=== PATIENT | male | born 1960 | race Caucasian/White ===

== ENCOUNTER → 2018-07-15 09:01 | Outpatient (CLI) | payer BC, SELFPAY ==
[2018-05-23 15:25] VITALS: BMI 38.2
[2018-07-15 10:23] LABS: Hemoglobin A1c 5.3 % (4.2-6.3)
[2018-07-15 10:25] LABS: AST(SGOT) 22 U/L (15-37); Alanine Aminotransfer ALT/SGPT 30 U/L (16-61); Albumin, Serum 3.6 g/dL (3.2-5.0); Alkaline Phosphatase 72 U/L (45-117); Anion Gap 5 (5-15); BUN 13 mg/dL (7-18); BUN/Creat Ratio 12.4 RATIO (10-20); Calcium,Total 8.6 mg/dL (8.5-10.1); Chloride 108 mmol/L (98-107); Cholesterol 137 mg/dL (200); Creatinine, Serum 1.05 mg/dL (0.70-1.30); EST Glomerular Filtration Rate 77 mL/min (>60); Est Glom Filt Rate - Afr Amer 93 mL/min (>60); Ferritin 104 ng/mL (26-388); Globulin 3.5 g/dL (2.2-4.2); Glucose 93 mg/dL (74-106); High Density Lipoprotein 56 mg/dL; PSA,Total - Annual Screen 1.62 ng/mL (0.00-4.00); Potassium 3.9 mmol/L (3.5-5.1); Protein, Total 7.1 g/dL (6.4-8.2); Sodium Level 139 mmol/L (136-145); Thyroid Stim Hormone (TSH) 1.03 uIU/mL (0.358-3.74); Triglycerides 63 mg/dL; Very Low Density Lipoprotein 13 mg/dL (5-40)
[2018-07-16 16:24] LABS: Endomysial Antibody IgA Negative (Negative)
[2018-07-16 16:25] LABS: Deamidated Gliadin IgA 3 units (0-19); Deamidated Gliadin IgG 2 units (0-19); Immunoglobulin A 245 mg/dL (90-386); t-Transglutaminase IgA <2 U/mL (0-3)
== END ==
PROVIDERS: Family Provider Family Medicine; PCP Family Medicine; Referring Provider Family Medicine; Visit Provider Family Medicine
DX: Z00.00 Encounter for general adult medical examination without abnormal findings (principal); L80 Vitiligo; R25.2 Cramp and spasm
CPT/HCPCS: 36415; 80053; 80061; 82728; 82784; 83036; 83516; 84153; 84443; 86255; G0103

== ENCOUNTER → 2018-07-24 10:39 | Outpatient (CLI) | payer BC, SELFPAY ==
--- NOTE | 2018-07-24 10:42 | RAD_ITS ---
STUDY: X-RAY - LUMBAR SPINE REASON FOR EXAM: Male, 58 years old. Right thigh pain TECHNIQUE: 5 view(s) of the lumbar spine were obtained. COMPARISON: None FINDINGS: There is normal alignment and curvature of the lumbosacral spine with degenerative changes involving the lower thoracic spine and also at T12-L1 and L1-L2. The pedicles are intact. The paravertebral soft tissues are normal.. RAD/L/S Spine Min 4 Views IMPRESSION: Mild multilevel intervertebral chondrosis. No fracture Electronically Signed: Mario Cool MD at 6:32 EST Tel , Service support ,
[2018-07-24 11:58] LABS: Absolute Lymphocyte Count 1.05 X10^3/ul (0.83-4.51); Basophil# 0.01 X10^3/uL; Basophil% 0.2 % (0-1); Eosinophil# 0.14 X10^3/uL; Eosinophils% 2.9 % (0-5); Hematocrit 44.2 % (40-54); Hemoglobin 15.1 g/dl (13.0-16.5); Lymphocyte # 1.05 X10^3/ul (4.0); Lymphocyte % 21.6 % (19-41); Mean Corp Hgb Conc 34.2 g/gl (32-36); Mean Corpuscular Hgb 31.5 pg (27.0-32.0); Mean Corpuscular Volume 92.3 fL (80-94); Mean Platelet Vol. 9.9 fl (6.2-12.0); Monocyte# 0.64 X10^3/uL; Monocyte% 13.1 % (0-10); Neutrophil # 3.03 X10^3/uL (2.7-7.7); Neutrophil % 62.2 % (47-70); Platelet Count 207 K/mm3 (150-450); RBC Distribution Width CV 13.2 % (11.6-14.6); RBC Distribution Width SD 43.4 fl (35.1-43.9); Red Blood Count 4.79 M/mm3 (4.6-6.2); White Blood Count 4.9 K/mm3 (4.4-11.0)
[2018-07-24 12:00] LABS: POSITIVE COUNT NO; POSITIVE DIFFERENTIAL NO; POSITIVE MORPHOLOGY NO
[2018-07-24 12:06] LABS: Erythrocyte Sedimentation Rate 5 mm/hr (0-20)
[2018-07-24 12:19] LABS: Vitamin B12 1083 pg/mL (211-911)
[2018-07-24 12:21] LABS: CPK Total, Creatine Kinase 161 U/L (39-308); CRP 4.87 mg/L (0.0-3.0)
[2018-07-26 11:50] LABS: Aldolase 4.2 U/L (3.3-10.3)
== END ==
PROVIDERS: Family Provider Family Medicine; PCP Family Medicine; Referring Provider Family Medicine; Visit Provider Family Medicine
DX: R25.3 Fasciculation (principal)
CPT/HCPCS: 36415; 72110; 82085; 82306; 82550; 82607; 83735; 85025; 85652; 86140

== ENCOUNTER → 2018-08-26 16:41 | Outpatient (CLI) | payer BC, SELFPAY ==
--- NOTE | 2018-08-26 16:45 | RAD_ITS ---
STUDY: X-RAY - RIGHT FEMUR REASON FOR STUDY: Mid anterior femur pain. TECHNIQUE: 2 view(s) of the femur. COMPARISON: None. FINDINGS: Normal visualized femur. Normal visualized soft tissue structure. RAD/Femur Min 2 Views IMPRESSION: Normal x-ray examination of the right femur. Electronically Signed: Leodan Forbes MD at 16:01 EST Tel , Service support ,
== END ==
PROVIDERS: Family Provider Family Medicine; PCP Family Medicine; Referring Provider Family Medicine; Visit Provider Family Medicine
DX: M79.604 Pain in right leg (principal)
CPT/HCPCS: 73552

== ENCOUNTER → 2018-10-16 06:16 | Outpatient (CLI) | payer BC, SELFPAY ==
[2018-05-23 15:25] VITALS: BMI 38.2
--- NOTE | 2018-10-16 11:16 | NEURO ---
NCS and/or EMG Patient Report Ordering Doctor: Sim Wilson DATE OF SERVICE: 10/16/18 Melvin Horn is a 58-year-old male presents for electrodiagnostic testing of the right lower limb. He reports intermittent sharp pains in the right thigh for the past several months. Electrodiagnostic findings: Normal peroneal and tibial motor studies on the right side. Sensory responses are within normal limits. Normal tibial and peroneal F-wave. H reflex normal bilaterally. On needle EMG, all muscles tested in the right lower limb show no evidence of denervation with normal motor unit action potentials. Electrodiagnostic impression: This is a normal study in the right lower limb. There is no electrodiagnostic evidence for lumbosacral radiculopathy or peripheral neuropathy. If there are any further questions, please do not hesitate to contact me.
== END ==
PROVIDERS: Family Provider Family Medicine; PCP Family Medicine; Referring Provider Family Medicine; Visit Provider Family Medicine
DX: R25.2 Cramp and spasm (principal)
CPT/HCPCS: 95886; 95910

== ENCOUNTER → 2018-10-21 16:14 | Outpatient (CLI) | payer BC, SELFPAY ==
[2018-05-23 15:25] VITALS: BMI 38.2
--- NOTE | 2018-10-21 16:22 | CT_ITS ---
STUDY: CTA CHEST WITH CONTRAST REASON FOR EXAM: Male, 58 years old. Thoracic aortic aneurysm. RADIATION DOSAGE (If Supplied By Facility): CTDIvol = ( 16.00 ) mGy, DLP = ( 728.90 ) mGycm TECHNIQUE: Transaxial imaging was performed following intravenous administration of 100ml ml of Isovue 300 contrast material. Coronal and sagittal reformatted images were created. Individualized dose optimization techniques were used for this CT. COMPARISON: 08/28/2017 FINDINGS: There are no pulmonary infiltrates or pleural effusions. There are no pulmonary nodules or masses. There is no pneumothorax. There is no evidence of thoracic aortic dissection. The ascending aorta and proximal aortic arch are normal in caliber. There is stable focal stenosis in the distal aortic arch approximately 2.5 cm from the origin of the left subclavian artery. There is stable aneurysmal dilatation of the distal aortic arch beyond the focal stenosis, measuring approximately 4.4 cm (previously 4.3 cm). The proximal descending thoracic aorta measures 3.7 cm and is stable in size. The heart and pericardium are within normal limits. There is no thoracic lymphadenopathy. Images through the upper abdomen demonstrate no significant abnormality. There are no destructive osseous lesions. CT/Chest WITH Contrast IMPRESSION: No evidence of thoracic aortic dissection. Stable focal narrowing of the aortic arch with stable post stenotic aneurysmal dilatation, measuring 4.4 cm. Clear lungs. Electronically Signed: Rosendo Sargent, at 15:37 EST Tel , Service support ,
[2018-10-21 16:40] LABS: CREATININE FINGERSTICK 0.8 mg/dL (0.70-1.30); EGFR FINGERSTICK > 60.0000 mL/min (>60)
== END ==
PROVIDERS: Family Provider Family Medicine; PCP Family Medicine; Referring Provider Internal Medicine Cardiovascular Disease; Visit Provider Internal Medicine Cardiovascular Disease
DX: I71.2 Thoracic aortic aneurysm, without rupture (principal)
CPT/HCPCS: 71260; Q9967

== ENCOUNTER 2018-12-24 16:30 | Outpatient (RCR) | payer BC, SELFPAY ==
--- NOTE | 2018-10-30 19:00 | HP.PTEVAL_ITS ---
Patient's Visit Information GEENA STONE is a 58 year old M referred to Physical Therapy by Sim Wilson MD with a diagnosis of R anterior leg pain in Meralgia paresthetica region. Date of Evaluation: 10/30/18 Physical Therapist: NATALIA Yoo - Visit Plan Frequency: 1-2x /Week Duration: 2 Months Plan: 1-2 X/ week for 8 weeks for prone centralization extension exercises, postural and core stability, stretching of the R Quad/hip flexor with foam rolling, with HEP and modalities if needed. - Subjective Findings: Pt reports that a few months ago his R leg from medial thigh and above in the middle of the night he thought it was a muscle cramp and most awful pain and it is almost like someone is dialing up his muscle and then goes full into it. He was leaning against the wall and broke out into a sweat. Went in living room and put something on it. 2 years prior to that it happened maybe one other time. Couple days later it starts again and freq became more freg and the feeling is like a razor claw is going up his anterior thigh. He started timing....6X/ each 1/2 hour it would do this while at his desk. He went to and was put on gabapetin. Did a nerve conduction and it is not nerve. thinks that it might be muscle of something. Currently he gets it maybe 1-2X/ week and it is like an electrical shock... the pain is deep. He walks at the [employer] and it hit him one time while he was walking and almost collapsed. They tested blood work and it all came back normal. He sits all day at his job. He has a tooth ache on the lateral lety of his hip if he get an ache. He played a lot of sports as he was younger. Couple of years ago he was in here with pain in his neck and R arm... 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 Pt would get burning. He had gained some weight and now is losing weight. - Pain R lateral thigh pain Pain Intensity (Out of 10): 1 - Objective Gait: normal gait pattern. Posture: slouched, decreased lumbar lordosis, rounded shoulders, increased PPT. LE MMT: Hip flex B 4/5, Knee flex B 4/5, Knee ext B 4/5, B hip abd 4-/5, B hip ext 4-/5. Palpation: Tender over the R rectus femoris.... no tenderness on the L. Trunk AROM: flex 75%, ext 50%, SB R 75% and L 100%. Pt is able to walk on heels and toes. Patellar DTR's 2+/3 B. Prone lying no change in anterior thigh symptoms. Prone Press ups 3 X 10...pts R thighsensation was abolished. Pt was shown how to sit with a lumbar roll. Tight Quad with stretching in prone on the R almost same area he was getting the grabbing sensation - Goals Goal 1:: I HEP Goal Time Frame: 4-6 Weeks Goal 2:: Abolish R leg pain Goal Time Frame: 4-6 Weeks Goal 3:: Sit with upright posture during treatment sessions Goal Time Frame: 4-6 Weeks - Rehabilitation Potential Rehabilitation Potential: Good - Anticipated Interventions Patient/Client Instruction: Educate patient on: Condition, Plan of Care For the Purpose of:: To decrease pain, To decrease swelling/inflammation, To increase ROM, To improve nutrient delivery to tissue, To improve muscle performa nce and motor function, To improve ability to perform ADL's, To increase tolerance to activity/condition/position, To improve ability of physical actions for home/community/work/leisure, To improve health of tissue, To decrease soft tissue restriction, To increase flexibility/ROM Therapeutic Exercise to Include: Strength training, Postural training, Flexibilty training, Passive ROM, Active ROM, Marlena Exercises For the Purpose of:: To decrease pain, To increase ROM, To improve nutrient delivery to tissue, To improve muscle performance and motor function, To improve ability to perform ADL's, To increase tolerance to activity/condition/position, To improve health of tissue, To decrease soft tissue restriction, To increase flexibility/ROM Manual Therapy Techniques to Include: Passive ROM, Functional dry needling, Soft tissue mobilization For the Purpose of:: To decrease pain, To improve nutrient delivery to tissue, To improve muscle performance and motor function, To increase tolerance to activity/condition/position, To improve ability of physical actions for home/community/work/leisure, To improve health of tissue, To decrease soft tissue restriction, To increase flexibility/ROM IF ES: Yes Cryotherapy (ice pack, ice massage): Yes Thermo therapy (hot pack): Yes Ultrasound (thermal/non thermal): Yes For the Purpose of:: To decrease pain, To decrease swelling/inflammation, To improve nutrient delivery to tissue, To improve muscle performance and motor function Thank you for the opportunity to evaluate your patient. For Medicare and Medicare HMO plans, please review the plan of care and approve it. It will need to be FAXED BACK to us at [phone] for Medicare purposes. For Medicare only, by signing this I certify the plan of care. Please let me know if there are questions or concerns regarding this plan of care. Physician Signature: Date:
--- NOTE | 2018-12-25 12:15 | HP.PTDCSUM ---
HP - PT D/C Summary It has been my pleasure to treat GEENA STONE under orders from Sim Wilson MD, for the diagnosis of R anterior leg pain in Meralgia paresthetica region for a total of 7 visit(s). Discharge Date: 12/25/18 Please see the following information for a summary of their discharge status. - Subjective Subjective: No pain today. This weekend he had pain after her was sitting in the car for 3 hours. He also notices that that his pain radiates from his R buttock to his anterior thigh. Prolonged sitting increases his pain. Pt late to PT - Pain R lateral thigh pain Pain Intensity (Out of 10): 1 - Overall Improvement % Improvement: 75 - Objective Objective/Function: Pt could really feel the prone press up with prone sag....across his LB. Feel that pt's symptoms are coming from L2 lumbar spine.... recommend PT in the future if pt's pain comes back and possible further diagnostic testing. - Goals Goal 1:: I HEP Goal Progress: Goal Met Goal 2:: Abolish R leg pain Goal Progress: Progressing Goal 3:: Sit with upright posture during treatment sessions Goal Progress: Goal Met - Plan Plan: DC PT to HEP - D/C Information Discharge Comments: DC PT to HEP If there are questions or concerns regarding this patient's physical therapy, please feel free to call me at [phone]. Thank you for the referral of this patient. Sincerely, Ramona Redd, MPT
== END 2018-12-24 19:00 | disposition home or self-care (01) ==
LOC: PT 16:30
PROVIDERS: Family Provider Family Medicine; PCP Family Medicine; Referring Provider Family Medicine; Visit Provider Family Medicine
DX: M79.604 Pain in right leg (principal); G57.11 Meralgia paresthetica, right lower limb
CPT/HCPCS: 97110; 97162

== ENCOUNTER → 2020-02-04 | Outpatient (CLI) | payer BC, SELFPAY ==
[2019-11-28 14:24] VITALS: BMI 32.5
--- NOTE | 2020-02-04 13:29 | CT_ITS ---
STUDY: CT CHEST WITH CONTRAST REASON FOR EXAM: Male, 59 years old. TAA CHECK UP RADIATION DOSAGE (If Supplied By Facility): CTDIvol = ( 18.17 ) mGy, DLP = ( 787.29 ) mGycm TECHNIQUE: Transaxial imaging was performed following intravenous administration of IV 100ML ISOVUE 370. Multiplanar coronal and sagittal images were reformatted. Individualized dose optimization techniques were used for this CT. COMPARISON: Comparison is made with prior study dated October 06, 2013. FINDINGS: The lungs are normal. There is no demonstrated pleural abnormality. Normal heart and pericardium. There are multiple small lymph nodes within the mediastinum, which are normal in size and morphology most compatible with reactive lymph hyperplasia. Normal hilar regions. Normal enhanced pulmonary arteries. Once again, there is evidence of dilatation of the distal portion of the aortic arch and descending thoracic aorta. The transverse dimension is 4.7 cm. This is unchanged. There is a focal narrowing of the distal portion of the aortic arch. The descending thoracic aorta is dilated as well. It has a transverse dimension of 3.8 cm. Quantitation of the aorta should be ruled out. Normal osseous structures. There is no demonstrated abnormality of the visualized upper abdomen. 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 Electronically Signed: Ricardo Delatorre, at 14:31 EDT , Service support ,
[2020-02-04 14:01] LABS: CREATININE FINGERSTICK 0.9 mg/dL (0.70-1.30); EGFR FINGERSTICK > 60.0000 mL/min (>60)
--- OUTSIDE RECORDS SUMMARY | 2020-06-06 15:12 | XMS RPT_ITS | CCD ---
:1960 External Reference #:[id number] Author Organization [facility] Care Team Providers Name Role Phone Cassidy Wilson Unavailable Kacie Hitchcock Unavailable Allergies Reported Allergen Reaction(s) Severity Date of Onset Location BACTRUM rash-localized Critical, Critical 10-24-2010 - [facility] ([id number]) Medications Medication Name Sig Date Prescriber Location aspirin ASPIRIN 81 MG TABS One 10-20-2015 [facility] tablet by mouth daily (71745 ) ASPIRIN [id number] Keshia Salgado RN ASPIRIN 81 MG TABS One tablet by mouth daily 10-20-2015 [facility] (88240) ASPIRIN [id number] Keshia Salgado RN ASPIRIN EC 81 MG TBEC One tablet by mouth 10-20-2015 [facility] (34683) daily ASPIRIN [id number] Juan J Powers busPIRone BUSPIRONE HCL 10 MG TABS 10-17-2013 - 11-25-2014 [facility] One tablet by mouth daily (4 4691) BUSPIRONE HCL [id number] Kody Malik MD BUSPIRONE HCL 10 MG TABS as directed-One 02-19-2012 [facility] (35891) tablet twice daily BUSPIRONE HCL [id number] Kody Malik MD carvedilol COREG 12.5 MG TABS 06-13-2010 Talisha Best RN [facility] One tablet by mouth Group (4 4691) twice daily CARVEDILOL [id number] Kody Malik MD doxycycline DOXYCYCLINE HYCLATE 05-17-2016 [facility] 100 MG TABS One Group (92881 ) tablet by mouth twice daily DOXYCYCLINE HYCLATE [id number] Kody Malik MD hydrOXYzine VISTARIL 25 MG CAPS 11-25-2014 - [facility] Every 8 hrs as needed 10-21-2015 Group (82467) HYDROXYZINE PAMOATE [id number] Kody Malik MD ipratropium IPRATROPIUM BROMIDE 09-25-2012 - [facility] 0.03 % SOLN Nasal 10-21-2015 Group (446 91) spray as directed IPRATROPIUM BROMIDE [id number] Kody Malik MD pantoprazole PANTOPRAZOLE SODIUM 10-17-2013 June Cortez [facility] 40 MG TBEC One tablet RN Group (11846) by mouth daily PANTOPRAZOLE SODIUM [id number] Kody Malik MD raNITIdine RANITIDINE HCL 300 MG 06-24-2009 [facility] CAPS One tablet by Group (44 691) mouth daily RANITIDINE HCL [id number] Roula M Valentin sertraline SERTRALINE HCL 100 MG 05-17-2016 [facility] TABS One half tablet Group ( 65945) by mouth daily SERTRALINE HCL [id number] Kody Malik MD Problems Active Problems Category Problem Name Status Date Location Aortic; peripheral; and Aneurysm of thoracic Active - [facility] visceral artery aorta Group (93964 ) aneurysms Cardiac dysrhythmias Supraventricular Active 10-24-2010 - [facility] tachycardia [facility] (01384) Other nutritional; Body mass index (BMI) Active 04-09-2013 - [facility] endocrine; and metabolic 35.0-35.9, adult Group (06067) disorders Peripheral and visceral Atherosclerosis of artery Active - [facility] atherosclerosis Group (16244 ) Unclassified Family history of Active 10-24-2010 - [facility] ischemic heart disease [facility] (88945) Past or Other Problems Category Problem Name Status Date Location Malaise and fatigue Fatigue Completed 10-24-2010 - [facility] (47695) Nonspecific chest Precordial pain Completed 10-24-2010 - [facility] pain (57494) Other circulatory Abnormal result of Completed 10-24-2010 - [facility] disease cardiovascular function (446 91) study, unspecified Superficial injury; Contusion of right Completed 06-06-2017 - [facility] contusion shoulder, initial Sports Med icine and encounter Orthopaedics (4 0505) Results Result Name Value Range Unit Interpretation Flag Date Location office visit on 02-26-18 Dietary management yes Invalid 06-06-2017 - [facility] education, Interpretation Code 7 [facility] guidance, and Medici ne and counseling Orthopaed ics (procedure) (06814) Documentation of Done Invalid 06-06-2017 - [facility] current medications Interpretation Code 06-06-2017 [place] [facility] (procedure) Medicine and Orthopaedi cs (61627) Tobacco use CPHS Never Invalid 06-06-2017 - [facility] smoker Interpretation Code 06-06-2017 [place] [facility] (25448) office visit on 02-23-28 Documentation of Done Invalid Interpretation 02-14-2017 - [facility] current medications Code 02-14-2017 Group (10144) (procedure) Fall risk assessment No Invalid Interpretat ion 02-14-2017 - [facility] Code 02-14-2017 Group (44 691) office visit on 01-20-03 Dietary management yes Invalid 10-21-2015 - [facility] education, guidance, Interpretation Code 10-21-2015 Group (24253) and counseling (procedure) General 4 % Invalid 10-21-2015 - [facility] cardiovascular Interpretation Code 10-20 Group (64045) disease 10Y risk [#] [place] Tobacco use CPHS Never smoker Invalid 10-21-2015 - [facility] Interpretation Code 10-21-2015 Group (38296) clinical lists update: preload on 2015-09-06 Alanine 23 U/L Invalid 09-06-2015 - [facility] aminotransferase (ALT) Interpretation Co de 09-06-2015 [facility] (87932) Alkaline phosphatase 56 U/L Invalid - [facility] (ALP) Interpretation Code 09-06-2015 [facility] (42777) Aspartate 17 U/L Invalid 09-06-2015 - [facility] aminotransferase (AST) Interpretation Co de 09-06-2015 [facility] (36076) Bilirubin (total) 0.90 mg/dL Invalid 09-06-2015 - [facility] Interpretation Code 09-06-2015 [facility] (41107) Chloride 109 mmol/L Invalid 09-06-2015 - [facility] Interpretation Code 09-06-2015 [facility] (37335) Cholesterol 127 mg/dL Invalid 09-06-2015 - [facility] Interpretation Code 09-06-2015 [facility] (59597) Creatinine 1.10 mg/dL Invalid 09-06-2015 - [facility] Interpretation Code 09-06-2015 [facility] (67486) HDL Cholesterol 56 mg/dL Invalid 09-06-2015 - [facility] Interpretation Code 09-06-2015 [facility] (96835) Hematocrit (HCT) 40.2 % Invalid 09-06-2015 - [facility] Interpretation Code 09-06-2015 [facility] (19171) Hemoglobin (HGB) 14.3 g/dL Invalid 09-06-2015 - [facility] Interpretation Code 09-06-2015 [facility] (30826) LDL Cholesterol 59 mg/dL Invalid 09-06-2015 - [facility] Interpretation Code 09-06-2015 [facility] (11868) Left ventricular 55 % Invalid 09-06-2015 - [facility] E[facility] fraction Interpretation Code [facility] (43435) Platelets 178 10*3/mm3 Invalid 09-06-2015 - [facility] Interpretation Code 09-06-2015 [facility] (65890) Potassium 4.1 mmol/L Invalid 09-06-2015 - [facility] Interpretation Code 09-06-2015 [facility] (19544) Sodium 145 mmol/L Invalid 09-06-2015 - [facility] Interpretation Code 09-06-2015 [facility] (78720) Triglyceride 60 mg/dL Invalid 09-06-2015 - [facility] Interpretation Code 09-06-2015 [facility] (08055) Urea nitrogen 13 mg/dL Invalid 09-06-2015 - [facility] Interpretation Code 09-06-2015 [facility] (14412) very low density 12 mg/dL Invalid 09-06-2015 - [facility] lipoproteins Interpretation Code 016 [facility] (23875) WBC (Leukocytes) 3.6 10*9/L Invalid 09-06-2015 - [facility] Interpretation Code 09-06-2015 [facility] (29417) office visit on 201 12-22-07 cardiac risk group C Invalid Interpretatio n 11-25-2014 - [facility] Code 11-25-2014 Group (44 691) clinical lists update: preload on 2014-03-04 Anion gap 6 mmol/L Invalid 03-04-2014 - [facility] Interpretation Code 03-04-2014 Group (35002) BUN/Creatinine 14.0 mg/mg Invalid 03-04-2014 - [facility] Ratio Interpretation Code 03-04-2014 Group (01241) CO2 29.0 mmol/L Invalid 03-04-2014 - [facility] Interpretation Code 03-04-2014 Group (69844) Erythrocytes (RBC) 4.71 10*6/uL Invalid 03-04-2014 - [facility] Interpretation Code 03-04-2014 Group (23729) Glucose 77 mg/dL Invalid 03-04-2014 - [facility] Interpretation Code 03-04-2014 Group (93923) Glucose mass conc 77 mg/dL Invalid 03-04-2014 - [facility] Interpretation Code 03-04-2014 [place] [facility] (85905) MCH 31.4 pg Invalid 03-04-2014 - [facility] Interpretation Code 03-04-2014 Group (84268) MCHC 34.9 g/dL Invalid 03-04-2014 - [facility] Interpretation Code 03-04-2014 Group (68495) MCV 90.0 fL Invalid 03-04-2014 - [facility] Interpretation Code 03-04-2014 Group (22174) clinical lists update on 2012-02-20 Calcium 8.4 mg/dL Invalid Interpretation 012 - [facility] Code 02-20-2012 Group (44 001) replaced document: midmark ecg observati ons on 2012-02-19 EKG QRS axis 9 deg Invalid 02-19-2012 - [facility] Interpretation 02-19-2012 [facility] (32528) electrocardiogram Sinus Invalid 02-19-2012 - [facility] interpretation Bradycardia Interpretation 02-19-20 12 Group (80075) WITHIN NORMAL Code LIMITS Interpretation Sinus Invalid 02-19-2012 - [facility] Bradycardia Interpretation 02-19-2012 [facility] WITHIN NORMAL Code Medici ne and LIMITS Orthopaedi cs (50177) P [place] 42 deg Invalid 02-19-2012 [facility] Interpretation 02-19-2012 [facility] nd [facility] (43426) P wave axis, 42 deg Invalid 02-19-2012 - [facility] electrocardiogram Interpretation 012 Group (88476) Code NM Interval 148 ms Invalid 02-19-2012 [facility] Interpretation 02-[facility]-2012 [facility] a nd [facility] (86743) NM interval, 148 ms Invalid 02-19-2012 - [facility] electrocardiogram Interpretation 012 Group (46778) Code Pulse (Heart Rate) 393 ms Invalid 02-19-2012 - [facility] Interpretation 02-19-2012 Grou p (10756) Code Pulse (Heart Rate) 54 BPM /min Invalid 02-19-2012 - [facility] Interpretation 02-19-2012 Gr[facility] p (11468) Code QRS axis, 9 deg Invalid 02-19-2012 - [facility] electrocardiogram Interpretation 012 Group (16703) Code QRS Duration 104 ms Invalid 02-19-2012 - [facility] Interpretation 02-19-2012 [facility] (95933) QRS duration, 104 ms Invalid 02-19-2012 - [facility] electrocardiogram Interpretation 012 Group (93653) Code QT Interval new path ms Invalid 02-19-2012 - [facility] Interpretation 02-19-2012 [facility] a nd [facility] (18580) QT interval, new path ms Invalid 02-19-2012 - [facility] electrocardiogram Interpretation 012 Group (84087) Code T [place] 33 deg Invalid 02-19-2012 [facility] Interpretation 02-19-2012 [facility] a nd [facility]opaedi [facility] (52784) T wave axis, 33 deg Invalid 02-19-2012 - [facility] electrocardiogram Interpretation 012 Group (91298) Code ekg report: midmark ecg observations on 2012-02-19 GE use only - for 392 ms Invalid Interpretation 02-19-2012 - [facility] LinkLogic import Code 02-19-2012 (4 4691) when terms are not otherwise specified QTc Harper 392 ms Invalid Interpretation 2011 - [facility] Code 02-19-2012 Sports Me dicine and Orthopaedi cs (86768) clinical lists update: preload on 2012-01-31 Albumin 3.9 g/dL Invalid 01-31-2012 - [facility] Interpretation Code 01-31-2012 Group (35959) Erythrocyte 4 mm/h Invalid 01-31-2012 - [facility] sedimentation rate Interpretation Code 0 01-31-2012 Group (75754) MCHC 35.2 % Invalid 01-31-2012 - [facility] Interpretation Code 01-31-2012 Group (29768) Protein 7.4 g/dL Invalid 01-31-2012 - [facility] Interpretation Code 01-31-2012 Group (55827) RDW-CA 13.9 % Invalid 01-31-2012 - [facility] Interpretation Code 01-31-2012 Group (24419) Thyroid stimulating 1.14 u[iU]/mL Invalid 01-31-2012 - [facility] hormone (TSH) Interpretation Code 2011 Group (45548) Vital Signs Vital Sign Description Value / Unit Date Location The following section is limited to 5 en tries per type and includes entries from the following time range: 20170214 - [id number] 8. BMI (Body Mass Index) 35.29 kg/m2 06-06-2017 - 06-06-2017 [facility] (60882) BMI (Body Mass Index) 35.75 kg/m2 02-14-2017 - 02-14-2017 [facility] (18907) BP Diastolic 82 mm[Hg] 02-14-2017 - 02-14-2017 [facility] (70039) BP Systolic 112 mm[Hg] 02-14-2017 - 02-14-2017 [facility] (82680) BSA (Body Surface Area) 2.22 m2 05-17-2016 - 05-17-2016 [facility] (26929) Height 175.26 cm 02-19-2012 - 02-19-2012 [facility] (77596) Pulse (Heart Rate) 64 /min 02-14-2017 - 02-14-2017 [facility] (76174) Respiratory Rate 16 /min 05-17-2016 - 05-17-2016 [facility] (91083) Weight 108.41 kg 06-06-2017 - 06-06-2017 [facility] (51295) Weight 109.82 kg 02-14-2017 - 02-14-2017 [facility] (96972) Encounters Date Type Reason Provider Location [place]16[place] [facility] [id number] Procedure Name Date Provider Location Follow Up Appt 9 months 02-14-2017 - Kody Malik MD [facility] 02-14-2017 [facility] (44 691) PFM 02-14-2017 - Kody Malik MD [facility] 02-14-2017 [facility] (44 [id number]) Follow Up Appt 9 months 02-14-2017 - Kody Malik MD [facility] 02-14-2017 ([id number]) PFM 02-14-2017 - Kody Malik MD [facility] 02-14-2017 ([id number]) Follow Up Appt 9 months 05-17-2016 - Kody Malik MD [facility] 05-17-2016 [facility] (44 691) PFM 05-17-2016 - Kody Malik MD [facility] 05-17-2016 [facility] (44 [id number]) Follow Up Appt 9 months 05-17-2016 - [facility] 05-17-2016 ([id number]) PFM 05-17-2016 - Kody Malik MD [facility] 05-17-2016 ([id number]) Follow Up Appt 6 months 10-21-2015 - Kody Malik MD [facility] 10-21-2015 [facility] (44 691) PFM 10-21-2015 - Kody Malik MD [facility] 10-21-2015 [facility] (44 [id number]) Follow Up Appt 6 months 10-21-2015 - [facility] 10-21-2015 ([id number]) PFM 10-21-2015 - Kody Malik MD [facility] 10-21-2015 ([id number]) Documentation of current 11-25-2014 - Kody Mailk MD [facility] medications 11-26-2014 [facility] (44 [id number]) Follow Up Appt 1 year 11-25-2014 - Kody Malik MD [facility] 01-23-2017 [facility] (44 691) PFM 11-25-2014 - Kody Malik MD [facility] 01-23-2017 [facility] (44 691) Documentation of current 11-25-2014 - [facility] medications 11-26-2014 ([id number]) Follow Up Appt 1 year 11-25-2014 - [facility] 01-23-2017 ([id number]) PFM 11-25-2014 - [facility] 01-23-2017 ([id number]) Follow Up Appt 6 months 10-17-2013 - Kody Malik MD [facility] 01-23-2017 [facility] (44 691) PFM 10-17-2013 - Kody Malik MD [facility] 01-23-2017 [facility] (44 [id number]) Follow Up Appt 6 months 10-17-2013 - [facility] 01-23-2017 ([id number]) PFM 10-17-2013 - [facility] 01-23-2017 ([id number]) Ct thorax w/contrast 04-09-2013 - Kody Malik MD [facility] material 01-23-2017 [facility] (44 [id number]) Follow Up Appt 6 months 04-09-2013 - Kody Malik MD [facility] 04-09-2013 [facility] (44 691) PFM 04-09-2013 - Kody Malik MD [facility] 04-09-2013 [facility] (44 691) Ct thorax w/dye 04-09-2013 - [facility] 01-23-2017 ([id number]) Follow Up Appt 6 months 04-09-2013 - [facility] 04-09-2013 ([id number]) PF 04-09-2013 - [facility] 04-09-2013 ([id number]) Follow Up Appt 6 months 09-25-2012 - Kody Malik MD [facility] 09-25-2012 [facility] (44 691) PF 09-25-2012 - Kody Malik MD [facility] 09-25-2012 [facility] (44 [id number]) Follow Up Appt 6 months 09-25-2012 - [facility] 09-25-2012 ([id number]) [facility] 09-25-2012 - [facility] 09-25-2012 ([id number]) Ct thorax w/contrast 02-19-2012 - Kody Malik MD [facility] Center material 04-09-2013 [facility] (44 691) Ecg routine ecg w/least 02-19-2012 - Kody Malik MD [facility] 12 lds w/i&r 06-03-2012 [facility] (44 691) Follow Up Appt 6 months 02-19-2012 - Kody Malik MD [facility] 06-03-2012 [facility] (44 691) Ct thorax w/dye 02-19-2012 - [facility] 04-09-2013 ([id number]) Electrocardiogram, 02-19-2012 - [facility] complete 06-03-2012 ([id number]) Follow Up Appt 6 months 02-19-2012 - [facility] 06-03-2012 ([id number]) Plan of Treatment Plan Description Date Location Appointment Appointment 11-26-2017 - [facility] 11-26-2017 ([id number]) Appointment Appointment 11-26-2017 - [facility] 11-26-2017 [facility] (44 691) CT Chest with Contrast CT Chest with Contrast 02-14-2017 - [facility] 02-14-2017 [facility]opa[facility] (44 [id number]) Follow Up Appt 9 months Follow Up Appt 9 months 02-14-2017 - [facility] 02-14-2017 [facility] (44 691) PFM PFM 02-14-2017 - [facility] 02-14-2017 [facility] (44 [id number]) CT Chest with Contrast CT Chest with Contrast 02-14-2017 - [facility] 02-14-2017 ([id number]) Follow Up Appt 9 months Follow Up Appt 9 months 02-14-2017 - [facility] 02-14-2017 ([id number]) PFM PFM 02-14-2017 - [facility] 02-14-2017 ([id number]) CT Chest with Contrast CT Chest with Contrast 05-17-2016 - [facility] 05-18-2016 [facility] (44 [id number]) Follow Up Appt 9 months Follow Up Appt 9 months 05-17-2016 - [facility] 05-17-2016 [facility] (44 691) PFM PFM 05-17-2016 - [facility] 05-17-2016 [facility] (44 691) CT Chest with Contrast CT Chest with Contrast 05-17-2016 - [facility] 05-18-2016 ([id number]) Follow Up Appt 9 months Follow Up Appt 9 months 05-17-2016 - [facility] 05-17-2016 ([id number]) PFM PFM 05-17-2016 - [facility] 05-17-2016 ([id number]) Follow Up Appt 6 months Follow Up Appt 6 months 10-21-2015 - [facility] 10-21-2015 [facility] (44 691) PFM PFM 10-21-2015 - [facility] 10-21-2015 [facility] (44 [id number]) Follow Up Appt 6 months Follow Up Appt 6 months 10-21-2015 - [facility] 10-21-2015 ([id number]) PFM PFM 10-21-2015 - [facility] 10-21-2015 ([id number]) Follow Up Appt 1 year Follow Up Appt 1 year 11-25-2014 - [facility] 01-23-2017 [facility] (44 [id number]) PFM PFM 11-25-2014 - [facility] 01-23-2017 [facility]opa[facility] (44 [id number]) Follow Up Appt 1 year Follow Up Appt 1 year 11-25-2014 - [facility] 01-23-2017 ([id number]) PFM PFM 11-25-2014 - [facility] 01-23-2017 ([id number]) Follow Up Appt 6 months Follow Up Appt 6 months 10-17-2013 - [facility] 01-23-2017 [facility] (44 [id number]) PFM PFM 10-17-2013 - [facility] 01-23-2017 [facility] (44 [id number]) Follow Up Appt 6 months Follow Up Appt 6 months 10-17-2013 - [facility] 01-23-2017 ([id number]) PFM PFM 10-17-2013 - [facility] 01-23-2017 ([id number]) CT Chest with Contrast CT Chest with Contrast 04-09-2013 - [facility] 10-01-2013 [facility] (44 [id number]) Follow Up Appt 6 months Follow Up Appt 6 months 04-09-2013 - [facility] 04-09-2013 [facility] (44 [id number]) PFM PFM 04-09-2013 - [facility] 04-09-2013 [facility] (44 [id number]) CT Chest with Contrast CT Chest with Contrast 04-09-2013 - [facility] 10-01-2013 ([id number]) Follow Up Appt 6 months Follow Up Appt 6 months 04-09-2013 - [facility] 04-09-2013 ([id number]) PFM PFM 04-09-2013 - [facility] 04-09-2013 ([id number]) Follow Up Appt 6 months Follow Up Appt 6 months 09-25-2012 - [facility] 09-25-2012 [facility] (44 [id number]) PFM PFM 09-25-2012 - [facility] er 09-25-2012 [facility] (44 [phone]) Follow Up Appt 6 months Follow Up Appt 6 months 09-25-2012 - [facility] 09-25-2012 ([id number]) PFM PFM 09-25-2012 - [facility] 09-25-2012 ([id number]) CT Chest with Contrast CT Chest with Contrast 02-19-2012 - [facility] 06-03-2012 [facility] (44 691) EKG (In office) EKG (In office) 02-19-2012 - [facility] 06-03-2012 [facility] ([id number]) Follow Up Appt 6 months Follow Up Appt 6 months 02-19-2012 - [facility] 06-03-2012 [facility] (44 691) CT Chest with Contrast CT Chest with Contrast 02-19-2012 - [facility] 06-03-2012 ([id number]) EKG (In office) EKG (In office) 02-19-2012 - [facility] 06-03-2012 ([id number]) Follow Up Appt 6 months Follow Up Appt 6 months 02-19-2012 - [facility] 06-03-2012 ([id number]) Summary Purpose Family History No Family History Records Found Advance Directives No Advanced Directives Records Found Additional Source Comments FOR RECORDS PERTAINING TO PATIENTS WHO ARE OR HAVE BEEN ENROLLED IN A CHEMICAL DEPENDENCY/SUBSTANCE ABUSE PROGRAM, SOME INFORMATION MAY BE OMITTED. This clinical summary was aggregated from multiple sources. Caution should be exercised in using it in the provision of clinical care. This summary normalizes information from multiple sources, and as a consequence, information in this document may materially changethe coding, format and clinical context of patient data. In addition, data may be omittedin some cases. CLINICAL DECISIONS SHOULD BE BASED ON THE PRIMARY CLINICAL RECORDS. [facility] provides no warranty or guarantee of the accuracy or completeness of information in this document. UNRECOGNIZED CONTENT PROVIDED BELOW FOR UNRECOGNIZED SECTION No Status Records Found UNRECOGNIZED CONTENT PROVIDED BELOW FOR UNRECOGNIZED SECTION INFORMATION SOURCE DATE CREATED AUTHOR AUTHOR'S ORGANIZATIO N 02/12/2018 [facility]
== END | disposition home or self-care (01) ==
LOC: CT 13:29
PROVIDERS: PCP Family Medicine; Referring Provider Internal Medicine Cardiovascular Disease; Visit Provider Internal Medicine Cardiovascular Disease
DX: I71.2 Thoracic aortic aneurysm, without rupture (principal)
CPT/HCPCS: 71260; Q9967

== ENCOUNTER → 2021-02-15 07:03 | Outpatient (CLI) | payer BC, SELFPAY ==
[2020-07-08 14:55] VITALS: BMI 34.6
--- NOTE | 2021-02-15 07:35 | MRI_ITS ---
STUDY: MRI BRAIN WITH AND WITHOUT CONTRAST (ATTENTION INTERNAL AUDITORY CANALS - I.A.C.''s) REASON FOR EXAM: Male, 60 years old. L HEARING LOSS TECHNIQUE: Standardized multiplanar fat and water weighted pulse sequences were obtained. IV 20cc Dotarem was administered for the contrast portion of the examination. COMPARISON: MRI brain without contrast 09/06/2015. FINDINGS: Normal bilateral temporal bones. Normal bilateral internal auditory canals. There is no demonstrated intracanalicular or cisternal vestibular schwannoma (acoustic neuroma). There is no enhancement of the bilateral VIIth or VIIIth cranial nerves. Normal bilateral cochlea, vestibules and semicircular canals. Normal size of the ventricles and extra-axial spaces for the patient''s age. Normal white matter tracts of the supratentorial brain. Normal bilateral basal ganglia. Normal thalami. Normal flow voids within the major intracranial circulation suggesting patency by spin echo criteria. Normal venous enhancement. There is no enhancing intra-axial or extra-axial abnormality. There is no extra-axial fluid accumulation. Normal sella turcica, pituitary gland, infundibular stalk, optic chiasm and hypothalamus. Normal tectal plate and pineal gland. Normal midbrain, edilson and medulla. Normal cerebellum. Normal basal cisterns. No demonstrated orbital abnormality, within the constraints of a routine brain study. Normal visualized paranasal sinuses. Normal calvarium and skull base. Normal visualized soft tissue structures. Normal visualized upper cervical spine. MRI/Brain W/WO Contrast IMPRESSION: 1. Normal unenhanced and enhanced MRI of the bilateral internal auditory canals (I.A.C''s). 2. No interval change when compared to MRI brain without contrast 09/06/2015. Electronically Signed: Gordo Cotton MD at 11:50 EDT , Service support ,
[2021-02-15 07:46] LABS: CREATININE FINGERSTICK < 0.6 mg/dL (0.70-1.30); EGFR FINGERSTICK > 60.0000 mL/min (>60)
== END ==
PROVIDERS: PCP Family Medicine; Referring Provider Otolaryngology Otolaryngology/Facial Plastic Surgery; Visit Provider Otolaryngology Otolaryngology/Facial Plastic Surgery
DX: H90.42 Sensorineural hearing loss, unilateral, left ear, with unrestricted hearing on the contralateral side (principal); R42 Dizziness and giddiness; R26.89 Other abnormalities of gait and mobility
CPT/HCPCS: 70553; A9575

== ENCOUNTER 2021-04-27 15:01 | Outpatient (CLI) | payer BC, SELFPAY ==
[2021-04-27 15:19] VITALS: BP 114/74; PULSE 79; RESP 16; TEMP 37.1; O2SAT 97; BMI 34.0
[2021-04-27] MEDS: 0.9% Saline Lock 10 ML Syringe IV (15:28)
[2021-04-27 16:00] VITALS: BP 125/84; PULSE 73; RESP 16; TEMP 37.4; O2SAT 98
[2021-04-27 17:00] VITALS: BP 129/92; PULSE 72; RESP 16; TEMP 37.1; O2SAT 100
== END 2021-04-27 17:00 | disposition home or self-care (01) ==
LOC: ICUOUT 15:02 → MS2 15:03
PROVIDERS: PCP Family Medicine; Referring Provider Nurse Practitioner Acute Care; Visit Provider Nurse Practitioner Acute Care
DX: Z23 Encounter for immunization (principal); U07.1 COVID-19
CPT/HCPCS: J7050; M0243; A4216; Q0244

== ENCOUNTER → 2021-06-24 06:38 | Outpatient (CLI) | payer BC, SELFPAY ==
--- NOTE | 2021-06-24 06:47 | CT_ITS ---
STUDY: CT CHEST WITH CONTRAST REASON FOR EXAM: Male, 61 years old. Thoracic aortic aneurysm. Follow-up. RADIATION DOSAGE (If Supplied By Facility): CTDIvol = ( 16.22 ) mGy, DLP = ( 711.56 ) mGycm TECHNIQUE: Transaxial imaging was performed following intravenous administration of IV 100mL Isovue-370. Multiplanar coronal and sagittal images were reformatted. Individualized dose optimization techniques were used for this CT. COMPARISON: Comparison is made with prior study dated 02/04/2000. FINDINGS: Mild degree of groundglass appearance at the lung bases bilaterally. This may represent the atelectasis. There is no demonstrated pleural abnormality. Normal heart and pericardium. There are multiple small lymph nodes within the mediastinum, which are normal in size and morphology most compatible with reactive lymph hyperplasia. Normal hilar regions. Normal enhanced pulmonary arteries. Once again, there is evidence of the dilatation of the distal portion of the aortic arch as well as the descending thoracic aorta. The transverse dimension of the aneurysmal dilatation measures 4.7 cm. This is unchanged. Once again, there is stable focal narrowing of the distal portion of the aortic arch. Stable dilatation of the descending thoracic aorta with a transverse dimension of 3.8 cm. There are multi-level degenerative changes of the thoracic spine. There is no demonstrated abnormality of the visualized upper abdomen. CT/Chest WITH Contrast IMPRESSION: Stable examination. Electronically Signed: Ricardo Delatorre MD at 9:07 EDT , Service support ,
[2021-06-24 06:50] LABS: CREATININE FINGERSTICK < 0.6 mg/dL (0.70-1.30); EGFR FINGERSTICK > 60.0000 mL/min (>60)
== END ==
PROVIDERS: PCP Family Medicine; Referring Provider Internal Medicine Cardiovascular Disease; Visit Provider Internal Medicine Cardiovascular Disease
DX: I71.2 Thoracic aortic aneurysm, without rupture (principal); I47.1 Supraventricular tachycardia
CPT/HCPCS: 71260; Q9967

== ENCOUNTER 2021-11-22 15:02 | Outpatient (RCR) | payer BC, SELFPAY | END 2021-12-17 23:59 | LOC: NS 15:02 | PROVIDERS: PCP Family Medicine; Referring Provider Family Medicine; Visit Provider Family Medicine | DX: Z71.3 Dietary counseling and surveillance (principal); E66.9 Obesity, unspecified; Z68.36 Body mass index [BMI] 36.0-36.9, adult; F41.1 Generalized anxiety disorder; F33.1 Major depressive disorder, recurrent, moderate; K21.9 Gastro-esophageal reflux disease without esophagitis; G43.909 Migraine, unspecified, not intractable, without status migrainosus | CPT/HCPCS: 97802 ==

== ENCOUNTER 2021-12-21 15:24 | Outpatient (RCR) | payer BC, SELFPAY | END 2022-01-17 23:59 | LOC: NS 15:24 | PROVIDERS: PCP Family Medicine; Referring Provider Family Medicine; Visit Provider Family Medicine | DX: Z71.3 Dietary counseling and surveillance (principal); E66.9 Obesity, unspecified; F41.1 Generalized anxiety disorder; F33.1 Major depressive disorder, recurrent, moderate; K21.9 Gastro-esophageal reflux disease without esophagitis; G43.909 Migraine, unspecified, not intractable, without status migrainosus; Z68.36 Body mass index [BMI] 36.0-36.9, adult | CPT/HCPCS: 97803 ==

== ENCOUNTER 2022-02-22 16:27 | Outpatient (RCR) | payer BC, SELFPAY | END 2022-03-19 23:59 | LOC: NS 16:27 | PROVIDERS: PCP Family Medicine; Referring Provider Family Medicine; Visit Provider Family Medicine | DX: Z71.3 Dietary counseling and surveillance (principal); E66.9 Obesity, unspecified; F41.1 Generalized anxiety disorder; F33.1 Major depressive disorder, recurrent, moderate; K21.9 Gastro-esophageal reflux disease without esophagitis; G43.909 Migraine, unspecified, not intractable, without status migrainosus; Z68.36 Body mass index [BMI] 36.0-36.9, adult | CPT/HCPCS: 97803 ==

== ENCOUNTER → 2022-05-19 | Outpatient (CLI) | payer BC, SELFPAY | END | disposition home or self-care (01) | PROVIDERS: PCP Family Medicine; Visit Provider Family Medicine | DX: R31.9 Hematuria, unspecified (principal) | CPT/HCPCS: 87077; 87086; 87088 ==

== ENCOUNTER → 2022-05-22 | Outpatient (CLI) | payer BC, SELFPAY ==
[2022-05-22 10:07] LABS: Color, Urine Yellow (Yellow); Glucose, Dipstick Normal (Normal); Ketone-Dipstick Negative (Negative); Leukocyte Esterase-Dipstick 25 /ul (Negative); Nitrite-Dipstick Negative (Negative); Occult Blood-Urine 25 /ul (Negative); Protein-Dipstick Negative (Negative); Urine Bilirubin Dipstick Negative (Negative); Urine Clarity Clear (Clear); Urine Urobilinogen Normal (Normal)
[2022-05-22 10:10] LABS: Hematocrit 42.5 % (40-54); Hemoglobin 14.9 g/dL (13.0-16.5)
[2022-05-22 11:09] LABS: ALB/GLOB Ratio 1.1 RATIO (0.9-2.4); AST(SGOT) 23 U/L (15-37); Alanine Aminotransfer ALT/SGPT 26 U/L (16-61); Albumin, Serum 3.6 g/dL (3.2-5.0); Alkaline Phosphatase 67 U/L (45-117); Anion Gap 6 (5-15); BUN 21 mg/dL (7-18); BUN/Creat Ratio 21.1 RATIO (10-20); Calcium,Total 8.9 mg/dL (8.5-10.1); Chloride 108 mmol/L (98-107); Creatinine, Serum 0.99 mg/dL (0.70-1.30); EST Glomerular Filtration Rate 81 mL/min (>60); Est Glom Filt Rate - Afr Amer 97 mL/min (>60); Globulin 3.3 g/dL (2.2-4.2); Glucose 92 mg/dL (74-106); Potassium 4.1 mmol/L (3.5-5.1); Protein, Total 6.9 g/dL (6.4-8.2); Sodium Level 141 mmol/L (136-145)
== END | disposition home or self-care (01) ==
LOC: MFPLAB 08:56
PROVIDERS: PCP Family Medicine; Visit Provider Family Medicine
DX: R31.9 Hematuria, unspecified (principal)
CPT/HCPCS: 80053; 81002; 85014; 85018; 87086

== ENCOUNTER → 2022-05-24 | Outpatient (CLI) | payer BC, SELFPAY ==
--- NOTE | 2022-05-24 18:45 | US_ITS ---
STUDY: RENAL ULTRASOUND - COMPLETE REASON FOR EXAM: Male, 61 years old. Anterior. History of kidney stones. Atypical symptomatology. TECHNIQUE: Ultrasound evaluation of the kidneys was performed with real-time and static browning-scale imaging. COMPARISON: CT of the chest, 06/24/2021 FINDINGS: RIGHT KIDNEY: Normal location of the right kidney, which is normal in size. The right kidney measures 10.5 cm. 1.2 The renal cortex measures cm. There is no right renal mass or cyst. There is a small echogenic focus measuring 0.9 x 0.5 x 0.7 cm centrally the right kidney which may represent small stone. There is no right hydronephrosis. DISTAL RIGHT URETER: There is non-visualization of the distal right ureter. There is no demonstrated right ureterovesical junction calculus. There is a visualized right ureteral jet. LEFT KIDNEY: Normal location of the left kidney, which is normal in size. The left kidney measures 10.3 cm. There is a normal cortex of the left kidney. The renal cortex measures 1.2 cm. There is no left renal mass or cyst. There are no left renal calculi. There is mild hydronephrosis of the left kidney. DISTAL LEFT URETER: There is non-visualization of the distal left ureter. There is no demonstrated left ureterovesical junction calculus. There is a visualized left ureteral jet. BLADDER: The distended urinary bladder has a volume of 59 ml. The bladder wall measures 6 mm in thickness. There is no demonstrated mass within the urinary bladder. There are no demonstrated bladder calculi. US/Kidney and Bladder IMPRESSION: 1. Question nonobstructing right renal calculus. This was noted on the prior chest CT. 2. Bilateral hydronephrosis. Again this appears present on the prior CT. 3. Poorly distended urinary bladder with wall thickening. This may be due to inflammatory process or the limited distention. Electronically Signed: Osmar Shearer DO at 20:29 EDT ,
== END | disposition home or self-care (01) ==
LOC: US 18:42
PROVIDERS: PCP Family Medicine; Visit Provider Family Medicine
DX: N20.0 Calculus of kidney (principal); R31.9 Hematuria, unspecified
CPT/HCPCS: 76770

== ENCOUNTER → 2022-06-08 | Outpatient (CLI) | payer BC, SELFPAY ==
--- NOTE | 2022-06-08 17:43 | CT_ITS ---
STUDY: CT ABDOMEN AND PELVIS WITH CONTRAST REASON FOR EXAM: Male, 62 years old. HEMATURIA RADIATION DOSAGE (If Supplied By Facility): CTDIvol = ( 22.61 ) mGy, DLP = ( 2234.74 ) mGycm TECHNIQUE: Transaxial images were obtained from the dome of the diaphragm to the symphysis pubis without oral contrast. IV 100mL Isovue-370 was administered. Sagittal and coronal images were reconstructed. Individualized dose optimization techniques were used for this CT. COMPARISON: Renal ultrasound from 05/24/2022 FINDINGS: The visualized lung bases are unremarkable. The visualized portions of the heart are within normal limits. Liver is unremarkable aside from scattered simple subcentimeter cysts. There are surgical clips in the gallbladder fossa consistent with a prior cholecystectomy. Normal spleen. Normal pancreas. Normal bilateral adrenal glands. No obstructive uropathy, there is a punctate nonobstructing right renal stone and bilateral extrarenal pelves. There is a small hiatal hernia. Normal small intestine. Normal colon. The appendix is visualized and appears normal. Appendix seen on coronal recon images 63 through 69 Normal abdominal aorta. Normal inferior vena cava. Normal retroperitoneum. Normal urinary bladder. Fat-containing left inguinal hernia. There are diffuse degenerative changes of the visualized lumbar spine, and pelvis. Nonspecific sclerotic focus in the left iliac CT/Abdomen/Pelvis W IV Cont ONLY IMPRESSION: No obstructive uropathy, or suspicious solid renal lesion. Stable nonobstructing right renal stone. I suspect there are extrarenal pelves rather than dilated calyces. The ureters are of normal course and caliber. No free intraperitoneal fluid, air, or suspicious adenopathy, normal appendix visualized Electronically Signed: Stevan Potter MD at 9:25 EDT ,
== END | disposition home or self-care (01) ==
LOC: CT 17:40
PROVIDERS: PCP Family Medicine; Referring Provider Urology; Visit Provider Urology
DX: R31.21 Asymptomatic microscopic hematuria (principal)
CPT/HCPCS: 74177; Q9967

== ENCOUNTER → 2022-06-12 | Outpatient (CLI) | payer BC, SELFPAY ==
[2022-06-12 17:45] LABS: Absolute Neutrophil Count 3.4 X10^3/uL (2.0-7.7); Basophil# 0.02 X10^3/uL; Basophil% 0.4 % (0-1); Eosinophil# 0.17 X10^3/uL; Eosinophils% 3.1 % (0-5); Hematocrit 41.6 % (40-54); Hemoglobin 14.2 g/dL (13.0-16.5); Lymphocyte % 20.3 % (19-41); Mean Corp Hgb Conc 34.1 g/dL (32-36); Mean Corpuscular Hgb 32.1 pg (27.0-32.0); Mean Corpuscular Volume 94.1 fL (80-94); Mean Platelet Vol. 9.5 fl (6.2-12.0); Monocyte% 12.9 % (0-10); NRBC Flagged by Analyzer 0 % (0-5); Neutrophil # 3.42 X10^3/uL (2.7-7.7); Neutrophil % 63.1 % (47-70); Platelet Count 193 K/mm3 (150-450); RBC Distribution Width CV 13.2 % (11.6-14.6); RBC Distribution Width SD 45.3 fl (35.1-43.9); Red Blood Count 4.42 M/mm3 (4.6-6.2); White Blood Count 5.4 K/mm3 (4.4-11.0)
[2022-06-12 19:43] LABS: Vitamin B12 447 pg/mL (211-911)
[2022-06-12 19:50] LABS: ALB/GLOB Ratio 1.1 RATIO (0.9-2.4); AST(SGOT) 20 U/L (15-37); Alanine Aminotransfer ALT/SGPT 26 U/L (16-61); Albumin, Serum 3.6 g/dL (3.2-5.0); Alkaline Phosphatase 67 U/L (45-117); Anion Gap 6 (5-15); BUN 17 mg/dL (7-18); CRP 4.68 mg/L (0.0-3.0); Calcium,Total 8.5 mg/dL (8.5-10.1); Chloride 109 mmol/L (98-107); Creatinine, Serum 1.06 mg/dL (0.70-1.30); EST Glomerular Filtration Rate 75 mL/min (>60); Est Glom Filt Rate - Afr Amer 90 mL/min (>60); Free T3 2.1 pg/mL (2.18-3.98); Globulin 3.3 g/dL (2.2-4.2); Glucose 79 mg/dL (74-106); Protein, Total 6.9 g/dL (6.4-8.2); Sodium Level 141 mmol/L (136-145); T4 Free Direct 0.83 ng/dL (0.76-1.46)
[2022-06-15 17:32] LABS: Thyroglobulin Antibody < 1.0 IU/mL (0.0-0.9); Thyroid Peroxidase AB 9 IU/mL (0-34)
== END | disposition home or self-care (01) ==
PROVIDERS: PCP Family Medicine; Visit Provider Family Medicine
DX: R53.83 Other fatigue (principal)
CPT/HCPCS: 36415; 80053; 82607; 84439; 84443; 84481; 85025; 86140; 86376; 86800

== ENCOUNTER → 2022-07-06 | Outpatient (CLI) | payer BC, SELFPAY | END | disposition home or self-care (01) | PROVIDERS: PCP Family Medicine; Visit Provider Urology | DX: Z01.810 Encounter for preprocedural cardiovascular examination (principal) | CPT/HCPCS: 93005 ==

== ENCOUNTER → 2022-08-16 | Outpatient (CLI) | payer BC, SELFPAY ==
--- NOTE | 2022-08-16 16:02 | CT_ITS ---
EXAM: CT ANGIOGRAPHY CHEST WITHOUT AND WITH INTRAVENOUS CONTRAST CLINICAL INDICATION: Thoracic aortic aneurysm TECHNIQUE: Helically acquired angiography images were obtained of the chest without and with intravenous contrast. This CT exam was performed using one or more of the following dose reduction techniques: automated exposure control, adjustment of the mA and/or kV according to patient size, and/or use of iterative reconstruction technique. This report was created using [employer] report generation technology. MIP reconstructed images were created and reviewed. CONTRAST: IV 100mL Isovue-370 RADIATION DOSE: CTDIvol = 18.70 mGy, DLP = 814.87 mGy-cm COMPARISON: CTA chest 06/24/2021. FINDINGS: PULMONARY ARTERIES: Unremarkable. Normal in caliber. No evidence of pulmonary embolism. AORTA: Elongation and kinking of the thoracic aorta at the level of the ligamentum arteriosum. The aneurysmal dilatation of the thoracic aorta distal to the ligamentum arteriosum remains 4.4 cm in maximum transverse diameter. The transverse thoracic aorta proximal to the ligamentum arteriosum has a diameter of 2.5 cm. No evidence of dissection. GREAT VESSELS OF AORTIC ARCH: Unremarkable. Normal in caliber. No evidence of dissection. LUNGS AND PLEURAL SPACES: The lungs are clear. No mass. No pleural effusion or thickening. No pneumothorax. HEART: Normal cardiac size. Normal pericardium. No signs of right heart strain, ratio of right ventricle to left ventricle measures less than 1. MEDIASTINUM: Unremarkable. No mediastinal or hilar adenopathy. Esophagus is unremarkable. No hiatal hernia. THYROID: Unremarkable. No thyroid lesions. BONES/JOINTS: Unremarkable. No suspicious lytic or blastic abnormality. GALLBLADDER AND BILE DUCTS: Surgical clips in the gallbladder fossa area from cholecystectomy. OPINION: 1. Elongation and kinking of the posterior transverse thoracic aorta at the level of the ligamentum arteriosum. In my opinion, this may be pseudocoarctation of the thoracic aorta. The aneurysmal dilatation of the thoracic aorta distal to the ligamentum arteriosum remains 4.4 cm in maximum transverse diameter. The transverse thoracic aorta proximal to the ligamentum arteriosum has a diameter of 2.5 cm. The previous measurement of 4.7 cm in transverse diameter was inaccurate since thoracic aorta is tortuous distal to the ligamentum arteriosum. My measurement was-based on multiplanar MIP reconstructions. The diameter of the junction of the upper and mid descending thoracic aorta is 4.1 cm. The diameter of the mid to lower descending thoracic aorta has a diameter of 3.5 cm. 2. No CTA evidence of thoracic aortic dissection. 3. No CT evidence of pulmonary thromboemboli. 4. No acute chest abnormality. 5. No interval change when compared to 06/24/2021. Electronically Signed: Gordo Cotton MD at 8:56 EST , CT/CTA Chest W/WO Contrast IMPRESSION: undefined
[2022-08-16 16:25] LABS: CREATININE FINGERSTICK 1.1 mg/dL (0.70-1.30); EGFR FINGERSTICK > 60.0000 mL/min (>60)
== END | disposition home or self-care (01) ==
LOC: CT 16:01
PROVIDERS: PCP Family Medicine; Referring Provider Internal Medicine Cardiovascular Disease; Visit Provider Internal Medicine Cardiovascular Disease
DX: I71.20 Thoracic aortic aneurysm, without rupture, unspecified (principal)
CPT/HCPCS: 71275; Q9967

== ENCOUNTER → 2022-11-01 | Outpatient (CLI) | payer BC, SELFPAY ==
--- NOTE | 2022-11-01 16:56 | US_ITS ---
STUDY: RENAL ULTRASOUND - COMPLETE REASON FOR EXAM: Male, 62 years old. Left-sided flank pain TECHNIQUE: Ultrasound evaluation of the kidneys was performed with real-time and static browning-scale imaging. COMPARISON: 05/24/2022 FINDINGS: RIGHT KIDNEY: Normal location of the right kidney, which is normal in size. The right kidney measures 10.1 x 4.9 x 5.4 cm. There is a normal cortex of the right kidney. The renal cortex measures 1.6 cm. There is no right renal mass or cyst. There is a nonobstructing 5 mm stone. Renal calyces are dilated. DISTAL RIGHT URETER: There is non-visualization of the distal right ureter. There is no demonstrated right ureterovesical junction calculus. There is a visualized right ureteral jet. LEFT KIDNEY: Normal location of the left kidney, which is normal in size. The left kidney measures 10.8 x 6.1 x 6.5 cm. There is a normal cortex of the left kidney. The renal cortex measures 1.4 cm. There is no left renal mass or cyst. There are no left renal calculi. Renal calyces are dilated DISTAL LEFT URETER: There is non-visualization of the distal left ureter. There is no demonstrated left ureterovesical junction calculus. There is a visualized left ureteral jet. AORTA: There is no elongation or tortuosity of the abdominal aorta. I.V.C.: The IVC is patent. BLADDER: The distended urinary bladder has a volume of 144.29 ml. The empty urinary bladder has a volume of 10.88 ml. There is a normal wall thickness of the distended urinary bladder. There is no demonstrated mass within the urinary bladder. There are no demonstrated bladder calculi. US/Kidney and Bladder IMPRESSION: Symmetric dilatation of both renal calyces without hydroureter. Findings likely due to bladder outlet issues, perhaps due to enlarged prostate No suspicious solid renal lesion Nonobstructing right nephrolithiasis Electronically Signed: Stevan Potter MD at 7:57 EDT ,
== END | disposition home or self-care (01) ==
LOC: US 16:54
PROVIDERS: PCP Family Medicine; Referring Provider Nurse Practitioner Family; Visit Provider Nurse Practitioner Family
DX: R10.9 Unspecified abdominal pain (principal)
CPT/HCPCS: 76770

== ENCOUNTER → 2022-11-07 | Outpatient (CLI) | payer BC, SELFPAY ==
[2022-11-07 18:08] LABS: Absolute Lymphocyte Count 1.28 X10^3/uL (0.83-4.51); Absolute Neutrophil Count 3.2 X10^3/uL (2.0-7.7); Basophil# 0.03 X10^3/uL; Basophil% 0.6 % (0-1); Eosinophil# 0.22 X10^3/uL; Hematocrit 46.4 % (40-54); Hemoglobin 15.5 g/dL (13.0-16.5); Lymphocyte # 1.28 X10^3/ul (0.83-4.51); Lymphocyte % 23.5 % (19-41); Mean Corp Hgb Conc 33.4 g/dL (32-36); Mean Corpuscular Hgb 31.3 pg (27.0-32.0); Mean Corpuscular Volume 93.5 fL (80-94); Mean Platelet Vol. 9.4 fl (6.2-12.0); Monocyte# 0.66 X10^3/uL; Monocyte% 12.1 % (0-10); NRBC Flagged by Analyzer 0 % (0-5); Neutrophil # 3.24 X10^3/uL (2.7-7.7); Neutrophil % 59.6 % (47-70); Platelet Count 203 K/mm3 (150-450); RBC Distribution Width SD 44.7 fl (35.1-43.9); Red Blood Count 4.96 M/mm3 (4.6-6.2); White Blood Count 5.4 K/mm3 (4.4-11.0)
[2022-11-07 19:10] LABS: Bacteria 0 SEEN /hpf (None Seen); Mucous, Urine 0 SEEN /hpf (<or=2+); Squamous Epithelial Cells - UA 0 SEEN /hpf (0-5)
[2022-11-07 19:14] LABS: Color, Urine Yellow (Yellow); Glucose, Dipstick Normal (Normal); Ketone-Dipstick Negative (Negative); Leukocyte Esterase-Dipstick 25 /ul (Negative); Nitrite-Dipstick Negative (Negative); Occult Blood-Urine Negative /ul (Negative); Protein-Dipstick Negative (Negative); Specific Gravity, Urine 1.015 (1.002-1.030); Urine Bilirubin Dipstick Negative (Negative); Urine Clarity Clear (Clear); Urine Urobilinogen Normal (Normal); Urine pH 6.5 (5.0 - 8.0)
[2022-11-07 19:33] LABS: Red Blood Cells-Urine 0-5 SEEN /hpf (0-5); White Blood Cells 0-5 SEEN /hpf (0-5)
[2022-11-07 20:15] LABS: ALB/GLOB Ratio 1.1 RATIO (0.9-2.4); AST(SGOT) 26 U/L (15-37); Alanine Aminotransfer ALT/SGPT 33 U/L (16-61); Albumin, Serum 3.8 g/dL (3.2-5.0); Alkaline Phosphatase 76 U/L (45-117); Anion Gap 7 (5-15); BUN 18 mg/dL (7-18); BUN/Creat Ratio 15.7 RATIO (10-20); Chloride 106 mmol/L (98-107); Creatinine, Serum 1.15 mg/dL (0.70-1.30); EST Glomerular Filtration Rate 68 mL/min (>60); Est Glom Filt Rate - Afr Amer 82 mL/min (>60); Globulin 3.5 g/dL (2.2-4.2); Glucose 91 mg/dL (74-106); Lipase 148 U/L (73-393); Potassium 3.7 mmol/L (3.5-5.1); Protein, Total 7.3 g/dL (6.4-8.2); Sodium Level 141 mmol/L (136-145)
== END | disposition home or self-care (01) ==
LOC: MFPLAB 16:25
PROVIDERS: PCP Family Medicine; Referring Provider Family Medicine; Visit Provider Family Medicine
DX: R10.13 Epigastric pain (principal)
CPT/HCPCS: 36415; 80053; 81001; 83690; 85025; 86140; 87086

== ENCOUNTER → 2022-11-14 | Outpatient (CLI) | payer BC, SELFPAY ==
--- NOTE | 2022-11-14 13:45 | CT_ITS ---
EXAM: CT ABDOMEN AND PELVIS WITHOUT INTRAVENOUS CONTRAST CLINICAL INDICATION: L flank and epigastric pain. hx biliary dz and kidney stones. c TECHNIQUE: Helically acquired images were obtained of the abdomen and pelvis without intravenous contrast. This CT exam was performed using one or more of the following dose reduction techniques: automated exposure control, adjustment of the mA and/or kV according to patient size, and/or use of iterative reconstruction technique. This report was created using [employer] report generation technology. RADIATION DOSE: CTDIvol = 20.96 mGy, DLP = 1052.64 mGy-cm. COMPARISON: 06/08/2022. FINDINGS: LOWER THORAX: Unremarkable. Lung bases are clear. No cardiomegaly. No significant pericardial effusion. ABDOMEN: LIVER: Unremarkable. Homogeneous. GALLBLADDER AND BILE DUCTS: Cholecystectomy. No intra- or extrahepatic biliary ductal dilation. PANCREAS: Unremarkable. No focal cystic mass. SPLEEN: Unremarkable. Normal size without focal cystic or solid mass. ADRENALS: Unremarkable. No nodules. KIDNEYS AND URETERS: Multiple tiny nonobstructing calculi right kidney. Small parapelvic cysts left kidney. STOMACH AND BOWEL: Unremarkable. No stomach or bowel distention. No focal inflammatory change. PELVIS: APPENDIX: Normal appendix. BLADDER: Unremarkable. REPRODUCTIVE: Unremarkable as visualized. No mass. ABDOMEN and PELVIS: INTRAPERITONEAL SPACE: Unremarkable. No ascites or other fluid collection. No free air. BONES/JOINTS: Unremarkable. No suspicious lytic or blastic abnormality. SOFT TISSUES: Small fat-containing left inguinal hernia. VASCULATURE: Unremarkable. Abdominal aorta is non-dilated. LYMPH NODES: Unremarkable. No enlarged lymph nodes. CT/Abdomen/Pelvis without Cont IMPRESSION: 1. Cholecystectomy. 2. Multiple tiny nonobstructing calculi right kidney. 3. No acute abdominal pelvic abnormality. 4. Small parapelvic cysts left kidney. No follow-up imaging necessary. Electronically Signed: Chano Black MD at 5:32 EDT ,
== END | disposition home or self-care (01) ==
LOC: CT 13:43
PROVIDERS: PCP Family Medicine; Visit Provider Family Medicine
DX: R10.13 Epigastric pain (principal); Z87.19 Personal history of other diseases of the digestive system
CPT/HCPCS: 74176

== ENCOUNTER → 2023-08-02 | Outpatient (CLI) | payer BC, SELFPAY ==
--- NOTE | 2023-08-02 16:02 | CT_ITS ---
STUDY: CTA CHEST REASON FOR EXAM: Male, 63 years old. Evaluate Thoracic aneurysm- 07/2022 RADIATION DOSAGE (If Supplied By Facility): CTDIvol = ( 19.77 ) mGy, DLP = ( 592.44 ) mGycm TECHNIQUE: The examination was performed with the intravenous administration of IV 100mL Isovue-370. Post-processing of the angiographic images was performed, with multiplanar reformation and 3D reconstruction. Individualized dose optimization techniques were used for this CT. COMPARISON: Prior study dated: 08/16/2022 FINDINGS: PULMONARY ARTERIES: Normal enhancement of the main pulmonary artery and right and left pulmonary arteries. Normal enhancement of the bilateral peripheral pulmonary arteries. There is no demonstrated pulmonary embolism. AORTA: There is redemonstration of a descending thoracic aortic aneurysm. Elongation of the distal aortic arch with kinking at the ligamentum arteriosum level. Just distal to the ligamentum arteriosum the aorta measures 4.4 cm, unchanged from prior. The aorta proximal to the ligamentum arteriosum measures 2.5 cm, also unchanged from prior. At the mid aspect of the descending thoracic aorta the aorta measures 3.6 cm. At the distal aspect the aorta measures 2.9 cm. There is no demonstrated aortic dissection. MEDIASTINUM: Normal heart and pericardium. No mediastinal lymphadenopathy. Normal hilar regions. LUNGS/PLEURA: Normal visualized trachea and bronchi. The lungs are well expanded. Normal pulmonary parenchyma. Normal pleura. No pneumothorax. CHEST WALL: Normal chest wall structures. UPPER ABDOMEN: No acute abnormality of the visualized upper abdomen. OSSEOUS STRUCTURES: No acute or suspicious osseous abnormality. Mild degenerative change throughout the spine. CT/CTA Chest W/WO Contrast IMPRESSION: No significant change from the prior study. Tortuosity and kinking of the thoracic aorta at the level of the ligamentum arteriosum. Distal to this the aneurysmal aorta measures 4.4 cm. This is unchanged. Electronically Signed: Casimiro Shannon MD at 21:59 EST ,
[2023-08-03 01:01] LABS: CREATININE FINGERSTICK < 1.0 mg/dL (0.70-1.30); EGFR FINGERSTICK > 60.0000 mL/min (>60)
== END | disposition home or self-care (01) ==
PROVIDERS: PCP Family Medicine; Referring Provider Nurse Practitioner Family; Visit Provider Nurse Practitioner Family
DX: R07.9 Chest pain, unspecified (principal); I71.20 Thoracic aortic aneurysm, without rupture, unspecified; E66.9 Obesity, unspecified
CPT/HCPCS: 71275; Q9967

== ENCOUNTER → 2023-08-10 | Outpatient (CLI) | payer BC, SELFPAY ==
--- NOTE | 2023-08-10 14:55 | STRESSREP ---
Stress Test Report Exercise myocardial perfusion stress test. 63-year-old man with a history of chest pain Stress protocol: Resting EKG demonstrates sinus rhythm with a rate of 63 bpm resting blood pressure is 130/94 mmHg. The patient exercised according to the regular Slim protocol for a total duration of 7 minutes attaining a maximum heart rate of 144 bpm which was 92% of maximum predicted heart rate; the maximum workload was 10.1 metabolic equivalents. At rest there were no ST or T wave changes noted to suggest ischemia and at peak exercise upsloping ST changes only were noted which did not meet the criteria for ischemia. No clinical angina was noted the test was terminated due to the target heart rate being achieved/fatigue. The peak blood pressure was 162/94 mmHg. Rate-pressure product was 140/98. Myocardial perfusion protocol. 14.0 mCi of technetium 99m sestamibi was injected at rest. The patient exercised according to regular Slim protocol for total duration of 7 minutes and at peak exercise 44.1 mCi of technetium 99m sestamibi was injected stress images were obtained stress and rest images were reconstructed in comparing the short axis vertical long and horizontal long axis. Gated images were also obtained. Perfusion SPECT analysis: Review of the stress images demonstrate normal uptake of tracer noted in all areas of the myocardium. The resting images similarly demonstrate normal uptake of tracer noted in all areas of the myocardium. No areas of reversibility are noted to suggest ischemia no previous infarct was noted. Gated SPECT analysis: The gated ejection fraction is 60%. Conclusion: Normal exercise myocardial perfusion stress test at a high workload Preserved ejection fraction.
== END | disposition home or self-care (01) ==
LOC: CVS 06:52
PROVIDERS: PCP Family Medicine; Referring Provider Nurse Practitioner Family; Visit Provider Nurse Practitioner Family
DX: R07.9 Chest pain, unspecified (principal); I71.20 Thoracic aortic aneurysm, without rupture, unspecified; I47.10 Supraventricular tachycardia, unspecified; E66.9 Obesity, unspecified
CPT/HCPCS: 78452; 93017; A9500; A4216; J2785

== ENCOUNTER 2024-04-10 07:00 | Outpatient (RCR) | payer OTHER, SELFPAY ==
--- NOTE | 2024-01-29 07:33 | HP.OTEVAL_ITS ---
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 Date of Evaluation: 01/24/24 Occupational Therapist: Lanie Vargas, RED/Jeanmarie, CHT Subjective Subjective: This 63 year old female was seen for OTe ur[facility]ano with dx of left unilateral primary osteoarthritis of first carpometacarpal joint S/p two weeks and two days s/p from a left CMC arthroplasty-pt arrives with orthosis on and reports he is comfortable enough in it. pt states had typically is ok- some swelling at end of day but pt did go back to work. 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 is assisting as able. ADLs Comments: pt limited with bilateral hand task with dressing/bathing at this time due to newly healing structures. Pain left hand: Current Pain Intensity: 3 Pain Intensity Range: 5 ROM Wrist: right 70/75 left 45/5 CMC: right 15 left NT MP: right 70 left 10 IP: right 80 left 50 ROM Comments: will test cmc motion at latera date Strength Containers Sales Representative: right 80# left NT Lateral Pinch: right 20# Left NT Tripod Pinch: right 18# left NT Strength Comments: will test strength at week 8 Sensation Sensation Comments: denies Quick DASH-Disab of Arm,Shoulder& Hand Quick DASH Score: 61.6650 Goals Goal:100% adherence to protocol: Yes Comment: CMC Arthroplasty protocol Dr. Mccormack Goal:Daily scar massage when approriate: Yes Goal:ROM equal to unaffected hand: Yes Goal:Containers Sales Representative/Pinch strength at least 75% of unaffected hand: Yes Goal:No pain with affected hand use: Yes Goal:Full use of affected hand in daily activities including work: Yes Goal:Decrease scar hypersensitivity: Yes Other Goal: orthosis use order wants orthosis cut down to wrist in two weeks Rehabilitation General Assessment: pt arrives s/p left CMC arthroplasty thumb reconstruction ligament and left carpometacarpal arthroplasty. pt currently limited with ROM , strength and functional use of left hand due to newly healing structures. pt demo need for skilled OT services 1-2x week for 8 weeks to return pt to use of left UE at PLOF. Today therapist initiated Dr. Vanessa Solomon's [facility] protocol and gave pt handout- therapist ed. pt on edema control, scar massage and initiation of short arch wrist ROM- pt demo understanding and agree to POC. Rehabilitation Potential: Excellent Anticipated Interventions Anticipated Interventions: A/AAROM/PROM, Strengthening, Edema Control, Scar Care, Triggerpoint Release, Desensitization, Modalities, Orthoses, Joint Protection/Energy Conservation, Ergonomic Education, Education re assistive Equipment, Education re Diagnosis and Home Program Visit Plan Frequency: 1-2x /Week Duration: 2 Months General Plan: Follow Dr. Aquino [facility] arthroplasty protocol TEXT: Thank you for the opportunity to evaluate your patient. For Medicare and Medicare HMO plans, please review the plan of care and approve it. It will need to be FAXED BACK to us at [phone] for Medicare purposes. Please let me know if there are questions or concerns regarding this plan of care. Physician Signature: Date:
--- NOTE | 2024-03-12 13:40 | HP.PTEVAL ---
Patient's Visit Information Visit Information Visit Information: GEENA STONE is a 63 year old M referred to Physical Therapy by Cecille Sullivan PA-C with a diagnosis of Right Shoulder Pain. Date of Evaluation: 03/12/24 Physical Therapist: Guera Fan DPT Visit Plan Frequency: 2x /Week Duration: 4 Weeks Plan: Focus on scapular s/s- postural correction HEP Given IE: Postural education, scapular retractions Subjective Subjective: Right hand dominate- had CMC on his left- started having right shoulder pain after surgery in December- took an x-ray and they reported that nothing looks torn- thinks its more OA- had a cortisone injection- 7 days ago- sent him to PT- if its still hurting in 6 weeks they will do an MRI. Much better since the cortisone injection. Worst: 8/10 Agg: showering, overhead- it would catch and then he would move it around it would be okay. Best: 0/10. Pain located in the bicipital groove. The pain would radiate down to the elbow it was more achy pains. He is seeing a MD about his ear on the left side. Work: sitting at a desk- computer work. His hand was very limiting with his activity. He did have more pain in the shoulder with any sort of gardening or activity. Sleep: when it rolls over on the shoulder it would wake him up. PMHx: aortic aneurism Meds: carvidol Objective Objective: Posture: forward head, rounded shoulders- can correct with verbal cues but does not maintain Gait: good arm swing and trunk rotation Palpation: tender bicipital groove ROM: WNL in all planes with discomfort end range flexion, abduction and IR behind the back Strength: scap: fair minus moderate winging- shoulder: 4+/5, elbow: 5/5 assistant superintendent: good Special Tests R Shoulder Empty Can - SS: Negative R Shoulder Belly Press - SupScap: Negative R Shoulder Neer - Impingement: Positive R Shoulder Bernardo Memo - Impingement: Positive Goals Goal 1:: Patient will be I with HEP and progression Goal Time Frame: 4-6 Weeks Goal 2:: Patient will maintain proper posture t/o tx session to demo increased scap s/s Goal Time Frame: 4-6 Weeks Goal 3:: Patient will report 80% improvement Goal Time Frame: 4-6 Weeks Rehabilitation Potential Physical Therapy Diagnosis: Patient presents with decreased scap s/s leading to poor posture and impingement of the right shoulder Rehabilitation Potential: Good Anticipated Interventions Therapeutic Exercise to Include: Strength training, Endurance training, Agility training, Body mechanics, Postural training, Flexibilty training, Neuromotor development, Dynamic Lumbar Stabilization and Scapular Strength/Stabilization Text: Thank you for the opportunity to evaluate your patient. For Medicare and Medicare HMO plans, please review the plan of care and approve it. It will need to be FAXED BACK to us at [phone] for Medicare purposes. For Medicare only, by signing this I certify the plan of care. Please let me know if there are questions or concerns regarding this plan of care. Physician Signature: Date:
--- NOTE | 2024-04-04 09:24 | HP.OTDCSUM ---
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 Please see the following information for a summary of their discharge status. Overall Improvement % Improvement: 100 Objective Objective/Function: left massage operator strength 80# pts left thumb ROM is WNL pt reports IND with all ADLs and IADLs at this time- Pt very happy he had procedure done. Goals Patient Goals: Regain Mobility, Improve Fine Motor Skills, Use Hand/Wrist/Arm Normally Again, Increase ROM and Be More Independent in ADLS Goal:100% adherence to protocol: Yes Goal Progress: Goal Met Goal:Daily scar massage when approriate: Yes Goal Progress: Goal Met Goal:ROM equal to unaffected hand: Yes Goal Progress: Goal Met Goal:Clinical Editor/Pinch strength at least 75% of unaffected hand: Yes Goal Progress: Goal Met Goal:No pain with affected hand use: Yes Goal:Full use of affected hand in daily activities including work: Yes Goal Progress: Goal Met Goal:Decrease scar hypersensitivity: Yes Goal Progress: Goal Met Other Goal: orthosis use order wants orthosis cut down to wrist in two weeks Goal Progress: Goal Met Plan Plan: D/C D/C Information Discharge Comments: pt states he is ready to be discharged at this time. pt has tolerated therapy well and made significant gains. pt agrees to POC. d/c sentence: If there are questions or concerns regarding this patient's occupational therapy, please fell free to call me at [phone]. Thank you for the referral of this patient. Sincerely, Lanie Vargas, OTR/L, CHT
--- NOTE | 2024-04-10 07:33 | HP.PTDCSUM ---
Discharge Summary D/C summary: It has been my pleasure to treat GEENA STONE referred by Cecille Sullivan PA-C, with the diagnosis of Right Shoulder Pain for a total of 6 visit(s). Discharge Date: 04/10/24 Please see the following information for a summary of their discharge status. Subjective Subjective: Pt. reports overall being about 90% better. Pt. reports no pain currently. He is back to doing all of his household and outside work. Pt. reports being compliant with HEP with use of BTB. Pain R shoulder: Pain Intensity (Out of 10): 0 Overall Improvement % Improvement: 90 Objective Objective/Function: ROM: Pt. has full ROM of B shoulders. No pain with Pt over pressures. MMT: R shoulder: flexion 22.1#, abd 25.4#, ER 17.1#, IR 21.9#. L shoulder: flexion 23.9#, abd 24.9#, ER 19.7#, IR 23.9#. Pt. had no pain with all shoulder testing this date. I reviewed his HEP with him and progressing him to purple band with- rows, shoulder, Ext, ER, IR, H abd and SL shoulder ER with 4#. Pt. is to complete these 3-4 times per week. Pt. consents. Overall doing well and with be DC from PT at this point in time. Goals Goal 1:: Patient will be I with HEP and progression Goal Progress: Goal Met Goal 2:: Patient will maintain proper posture t/o tx session to demo increased scap s/s Goal Progress: Goal Met Goal 3:: Patient will report 80% improvement Goal Progress: Goal Met Plan Plan: DC to HEP D/C Information d/c sentence: If there are questions or concerns regarding this patient's physical therapy, please feel free to call me at [phone]. Thank you for the referral of this patient. Sincerely, Darryl Murry Sipos, DPT Balance/Gait/Functional tests Balance/Special Test Scores Quick DASH Score: 4.5450 Improvement % Improvement: 90
== END 2024-04-10 09:52 | disposition home or self-care (01) ==
LOC: PT 07:00
PROVIDERS: PCP Family Medicine; Referring Provider Physician Assistant; Visit Provider Physician Assistant
DX: M18.12 Unilateral primary osteoarthritis of first carpometacarpal joint, left hand (principal)
CPT/HCPCS: 97035; 97110; 97140; 97162; 97166; 97530

== ENCOUNTER 2024-06-12 09:51 | Emergency (ER) | payer OTHER, SELFPAY ==
[2024-06-12 09:51] VITALS: BP 115/90; BP 95/75; PULSE 78; PULSE 80; RESP 16; TEMP 36.8; O2SAT 100; BMI 37.0
[2024-06-12 10:27] LABS: Absolute Lymphocyte Count 1.23 X10^3/uL (0.83-4.51); Absolute Neutrophil Count 6.2 X10^3/uL (2.0-7.7); Basophil# 0.03 X10^3/uL; Basophil% 0.3 % (0-1); Eosinophil# 0.12 X10^3/uL; Eosinophils% 1.3 % (0-5); Hemoglobin 15.6 g/dL (13.0-16.5); Lymphocyte # 1.23 X10^3/ul (0.83-4.51); Lymphocyte % 13.5 % (19-41); Mean Corp Hgb Conc 34.7 g/dL (32-36); Mean Corpuscular Hgb 31.5 pg (27.0-32.0); Mean Corpuscular Volume 90.9 fL (80-94); Mean Platelet Vol. 9.3 fl (6.2-12.0); Monocyte# 1.49 X10^3/uL; Monocyte% 16.3 % (0-10); NRBC Flagged by Analyzer 0 % (0-5); Neutrophil # 6.24 X10^3/uL (2.7-7.7); Neutrophil % 68.3 % (47-70); Platelet Count 234 K/mm3 (150-450); RBC Distribution Width SD 43.8 fl (35.1-43.9); Red Blood Count 4.95 M/mm3 (4.6-6.2); White Blood Count 9.1 K/mm3 (4.4-11.0)
[2024-06-12 11:01] LABS: ALB/GLOB Ratio 1.1 RATIO (0.9-2.4); AST(SGOT) 25 U/L (15-37); Alanine Aminotransfer ALT/SGPT 29 U/L (16-61); Alkaline Phosphatase 80 U/L (45-117); Anion Gap 4 (5-15); BUN 23 mg/dL (7-18); BUN/Creat Ratio 21.9 RATIO (10-20); Calcium,Total 9.1 mg/dL (8.5-10.1); Chloride 105 mmol/L (98-107); Creatinine, Serum 1.05 mg/dL (0.70-1.30); EST Glomerular Filtration Rate 75 mL/min (>60); Est Glom Filt Rate - Afr Amer 91 mL/min (>60); Globulin 3.6 g/dL (2.2-4.2); Glucose 66 mg/dL (74-106); Potassium 3.8 mmol/L (3.5-5.1); Protein, Total 7.6 g/dL (6.4-8.2); Sodium Level 138 mmol/L (136-145)
[2024-06-12 11:43] VITALS: BP 116/89; PULSE 87; RESP 16; O2SAT 99
--- NOTE | 2024-06-12 11:52 | CT_ITS ---
EXAM: CT ABDOMEN AND PELVIS WITH INTRAVENOUS CONTRAST CLINICAL INDICATION: abdominal pain TECHNIQUE: Helically acquired images were obtained of the abdomen and pelvis with intravenous contrast. This CT exam was performed using one or more of the following dose reduction techniques: automated exposure control, adjustment of the mA and/or kV according to patient size, and/or use of iterative reconstruction technique. CONTRAST: IV 100mL Isovue-300 COMPARISON: No relevant prior studies available. FINDINGS: LOWER THORAX: Small hiatal hernia. ABDOMEN: LIVER: 6 mm liver cyst. Liver is otherwise unremarkable. GALLBLADDER AND BILE DUCTS: Cholecystectomy clips are in place. No intra- or extrahepatic biliary ductal dilation. PANCREAS: Normal. No focal cystic or solid mass. SPLEEN: Normal. Normal size without focal cystic or solid mass. ADRENALS: Normal. No nodules. KIDNEYS AND URETERS: A parapelvic left renal cysts. No specific follow-up indicated. Punctate stone noted within the upper pole of both kidneys. No hydronephrosis. STOMACH AND BOWEL: Diverticulosis of the colon noted without evidence of acute diverticulitis. PELVIS: APPENDIX: Appendix is visualized and normal in appearance. BLADDER: Normal. REPRODUCTIVE: Unremarkable as visualized. No mass. ABDOMEN and PELVIS: INTRAPERITONEAL SPACE: Normal. No ascites or other fluid collection. No free air. BONES/JOINTS: No suspicious lytic or blastic abnormality. SOFT TISSUES: Fat-containing left inguinal hernia. VASCULATURE: Normal. Abdominal aorta is non-dilated. LYMPH NODES: Normal. No enlarged lymph nodes. CT/Abdomen/Pelvis W IV Cont ONLY IMPRESSION: 1. No acute abdominal or pelvic abnormality. 2. Bilateral nephrolithiasis. 3. Diverticulosis coli. 4. Small hiatal hernia. 5. Fat-containing left inguinal hernia. Electronically Signed: Puma Santana MD at 12:24 EDT ,
[2024-06-12 11:54] LABS: Bacteria 0 SEEN /hpf (None Seen); Red Blood Cells-Urine 0 SEEN /hpf (0-5); Squamous Epithelial Cells - UA 0 SEEN /hpf (0-5)
[2024-06-12 12:02] LABS: Color, Urine Yellow (Yellow); Glucose, Dipstick Normal (Normal); Ketone-Dipstick Negative (Negative); Leukocyte Esterase-Dipstick 100 /ul (Negative); Nitrite-Dipstick Negative (Negative); Occult Blood-Urine Negative /ul (Negative); Protein-Dipstick 15 mg/dl (Negative); Urine Bilirubin Dipstick Negative (Negative); Urine Clarity Clear (Clear); Urine Urobilinogen 1 mg/dl (Normal)
[2024-06-12 12:10] LABS: Mucous, Urine 1+ /hpf (<or=2+); White Blood Cells 0-5 SEEN /hpf (0-5)
--- NOTE | 2024-06-12 12:52 | ED.VIS.GI ---
HPI HPI - GI History of Present Illness Chief Complaint: Abd Pain Informant: patient and family Narrative Narrative: 64-year-old male presenting to the emergency room with a chief complaint of abdominal pain. Patient states about 3 weeks ago he was on vacation. He states that he began to feel some discomfort right lower ribs that would seem to radiate towards the left. It has stayed pretty constant. Seems to be not associated with food. No diarrhea no vomiting. [place] like it was probably a muscular injury but he cannot recall anything that would have hurt it. Today he woke with pain in the low back which again felt muscular and worse with movement but could not pinpoint anything that would have caused that. No fever no rash no urinary symptoms. He has had prior kidney stone. He said prior cholecystectomy. He is followed for a thoracic aortic aneurysm. This is not required any surgery. He denies any leg symptoms. No chest pain no shortness of breath no cough PFSH PFSH Medical History Thoracic aortic aneurysm without rupture Paroxysmal supraventricular tachycardia Fatigue H/O precordial chest pain Supraventricular premature beats Palpitations Abnormal chest xray Supraventricular tachycardia Vitiligo Obesity GERD (gastroesophageal reflux disease) Facial paresthesia Left arm pain Nephrolithiasis Home Medications ?Medication ?Instructions ?Recorded ?Last Taken ?Type aspirin 81 mg tablet,delayed 81 mg PO DAILY@0800 #30 tabs 09/06/15 Unknown Rx release sertraline 50 mg tablet 50 mg PO DAILY 05/21/18 Unknown History carvedilol 6.25 mg tablet 6.25 mg PO BID #180 tabs 06/21/23 Unknown Rx amoxicillin 500 mg tablet 500 mg PO TID #30 tabs 02/04/24 Unknown Rx triamterene 37.5 1 tab PO DAILY 06/12/24 Unknown History mg-hydrochlorothiazide 25 mg tablet Allergy/AdvReac Type Severity Reaction Status Date / Time sulfamethoxazole (From AdvReac Severe Rash-locali Verified 06/12/24 09:52 Bactrim) zed trimethoprim (From Bactrim) AdvReac Severe Rash-locali Verified 06/12/24 09:52 zed Family History Father CAD (coronary artery disease) cabg Mother Colon cancer Brother ablation Surgical History History of cardiac radiofrequency ablation (~11/28/07) History of cholecystectomy Social History Smoking Status: Never smoker alcohol intake: current caffeine: Yes Type: coffee ROS ROS ED Constitutional Constitutional ED: Denies chills, fever(s) or weight loss Eyes Eyes: Denies change in vision or diplopia ENT ENT ED: Denies ear pain, rhinorrhea or sore throat Cardiovascular Cardiovascular: Denies chest pain, orthopnea, palpitations or racing heartbeat Respiratory/Chest Respiratory/Chest: Denies cough, dyspnea or orthopnea Gastrointestinal Gastrointestinal: Reports abdominal pain; Denies diarrhea, nausea or vomiting Genitourinary Genitourinary ED: Denies dysuria, hematuria or urinary frequency Musculoskeletal Musculoskeletal: Reports back pain; Denies arthralgias or myalgias Integumentary Denies abscess or rash Neurologic Neurologic: Denies headache(s) or weakness Psychiatric Psychiatric: Denies anxiety, depression, suicidal ideation or suicidal thoughts Endocrine Endocrinology: Denies polydipsia, polyphagia or polyuria Allergic/Immunologic Allergic/Immunologic ED: Denies mouth swelling, tongue swelling or urticaria EXAM Physical Exam Const Vital Signs: 06/12/24 09:51 06/12/24 09:51 06/12/24 11:43 Temperature 98.3 F Temperature Source Temporal Pulse Rate 80 78 87 Respiratory Rate 16 16 16 Blood Pressure 95/75 115/90 H 116/89 H Blood Pressure Mean 81 98 98 Pulse Ox 100 100 99 Oxygen Delivery Method Room Air Room Air 06/12/24 13:00 Temperature Temperature Source Pulse Rate 87 Respiratory Rate 16 Blood Pressure 128/88 H Blood Pressure Mean 101 Pulse Ox 99 Oxygen Delivery Method Positive well nourished and well developed General Appearance ED: well developed HEENT Reports normocephalic, head/scalp atraumatic and moist mucous membranes Eyes PERRL and EOMs intact bilaterally Neck no lymphadenopathy, supple and no JVD Resp normal respiratory effort and clear to auscultation bilaterally Cardio regular rate, regular rhythm and no murmurs GI GI Narrative: Mild tenderness to palpation in the right upper quadrant no guarding no rebound there is no rash noted the abdomen is soft Inspection: Negative for abdominal distention Auscultation: normoactive bowel sounds Palpation: soft; Negative for tender, guarding or rebound tenderness present Back/Spine no CVA tenderness and normal ROM Back/Spine Narrative: Mild tenderness to palpation over the lumbar paraspinal musculature no tissue texture changes to suggest underlying infection Extremity normal to inspection General Extremety ED: Negative for edema General Extremity: Negative for edema Neuro oriented x3 and CN's II-XII intact bilaterally Sensorium / Orientation: alert Motor Exam: strength 5/5 throughout Psych mental status grossly normal Mood & Affect: Negative for depressed or tearful Skin no rashes or lesions noted and no wounds MDM MDM MDM Narrative Medical decision making narrative: Differential diagnosis includes choledocholithiasis kidney infection ascites colitis abdominal wall strain pancreatitis aortic catastrophe doubtful DVT as the patient has no chest pain no shortness of breath no tachycardia no pleuritic component Patient's white count is 9.1 hemoglobin 15.6 platelet count of 234 BMP within normal limits there is a glucose noted to be 66 liver enzymes are normal urinalysis shows no overt infection or gross hematuria. CT of the ab pelvis with IV contrast was essentially negative. I spoke with the patient and his family. I do not see a clear etiology for his pain. He is comfortable with home observation and following up if needed return if worsening or concern History & Record Review Discussion w/independent historian: Patient and Family Lab Data Attestation: I reviewed the patient's lab results. Labs: Laboratory Results - last 24 hr 06/12/24 06/12/24 10:18 11:45 WBC 9.1 RBC 4.95 Hgb 15.6 Hct 45.0 MCV 90.9 MCH 31.5 MCHC 34.7 RDW Std Deviation 43.8 RDW Coeff of Allan 13.0 Plt Count 234 MPV 9.3 Immature Gran % (Auto) 0.300 Neut % (Auto) 68.3 Lymph % (Auto) 13.5 L [place] % (Auto) 16.3 H Eos % (Auto) 1.3 Baso % (Auto) 0.3 Absolute Neuts (auto) 6.2 Absolute Lymphs (auto) 1.23 Nucleated RBC % 0 Sodium 138 Potassium 3.8 Chloride 105 Carbon Dioxide 29.0 Anion Gap 4 L BUN 23 H Creatinine 1.05 Estim Creat Clear Calc 86.00 Est GFR (MDRD) Af Amer 91 Est GFR (MDRD) Non-Af 75 BUN/Creatinine Ratio 21.9 H Glucose 66 L Calcium 9.1 Total Bilirubin 0.80 AST 25 ALT 29 Alkaline Phosphatase 80 Total Protein 7.6 Albumin 4.0 Globulin 3.6 Albumin/Globulin Ratio 1.1 Urine Color Yellow Urine Clarity Clear Urine pH 6.0 Ur Specific [place] 1.020 Urine Protein 15 H Urine Glucose (UA) Normal Urine Ketones Negative Urine Occult Blood Negative Urine Nitrite Negative Urine Bilirubin Negative Urine Urobilinogen 1 H Ur Leukocyte Esterase 100 H Urine RBC 0 SEEN Urine WBC 0-5 SEEN Ur Squamous Epith Cells 0 SEEN Urine Bacteria 0 SEEN Urine Mucus 1+ Radiography Diagnostic Testing: Clinical Impression(s) from Imaging Studies Abdomen/Pelvis CT 06/12/24 11:52 IMPRESSION: 1. No acute abdominal or pelvic abnormality. 2. Bilateral nephrolithiasis. 3. Diverticulosis coli. 4. Small hiatal hernia. 5. Fat-containing left inguinal hernia. Electronically Signed: Puma Santana MD at 12:24 EDT , Discharge Plan Triage Chief Complaint: Abd Pain ED Provider: Guillermo Bellamy Dx/Rx/DC Orders Clinical Impression: Abdominal pain Instructions: Abdominal Pain Prescriptions: No Action amoxicillin 500 mg tablet 500 mg PO TID Qty: 30 0RF aspirin 81 MG tablet 81 mg PO DAILY@0800 Qty: 30 0RF Patient Comments: heart health sertraline 50 mg tablet 50 mg PO DAILY triamterene-hydrochlorothiazid 37.5-25 mg tablet 1 tab PO DAILY carvedilol 6.25 mg tablet 6.25 mg PO BID Qty: 180 4RF Rx Instructions: must administer with a meal/food Primary Care Provider: Sim Wilson Referrals: Sim Wilson MD [Primary Care Provider] - As Needed Activity Restrictions/Additional Instructions: If new symptoms or worsening or concerns please return to emergency Print Language: Senegalese Disposition Disposition: Home, Self Care Discharge Date/Time: 06/12/24 13:02
[2024-06-12 13:00] VITALS: BP 128/88; PULSE 87; RESP 16; O2SAT 99
== END 2024-06-12 13:02 | disposition home or self-care (01) ==
PROVIDERS: Emergency Provider Emergency Medicine; PCP Family Medicine; Visit Provider Emergency Medicine
DX: R10.9 Unspecified abdominal pain (principal); I71.20 Thoracic aortic aneurysm, without rupture, unspecified; K21.9 Gastro-esophageal reflux disease without esophagitis
CPT/HCPCS: 74177; 80053; 81001; 85025; 99283; Q9967; A4216

== ENCOUNTER → 2024-09-18 | Outpatient (CLI) | payer OTHER, SELFPAY ==
[2024-09-18 15:47] LABS: Anion Gap 6 (5-15); BUN 20 mg/dL (7-18); BUN/Creat Ratio 19.8 RATIO (10-20); Calcium,Total 8.7 mg/dL (8.5-10.1); Chloride 106 mmol/L (98-107); Cholesterol 164 mg/dL (200); Creatinine, Serum 1.01 mg/dL (0.70-1.30); EST Glomerular Filtration Rate 79 mL/min (>60); Est Glom Filt Rate - Afr Amer 95 mL/min (>60); Glucose 83 mg/dL (74-106); High Density Lipoprotein 66 mg/dL; Potassium 3.8 mmol/L (3.5-5.1); Sodium Level 139 mmol/L (136-145); Triglycerides 83 mg/dL; Very Low Density Lipoprotein 17 mg/dL (5-40)
== END | disposition home or self-care (01) ==
LOC: LAB 13:42
PROVIDERS: PCP Family Medicine; Referring Provider Internal Medicine Cardiovascular Disease; Visit Provider Internal Medicine Cardiovascular Disease
DX: R07.9 Chest pain, unspecified (principal); I71.23 Aneurysm of the descending thoracic aorta, without rupture
CPT/HCPCS: 36415; 80048; 80061

== ENCOUNTER → 2025-06-01 | Outpatient (CLI) | payer MEDICARE, SELFPAY ==
[2025-06-01 11:33] LABS: PSA,Total - Annual Screen 2.32 ng/mL (0.02-4.00)
[2025-06-01 12:36] LABS: AST(SGOT) 23 U/L (<=37); Alanine Aminotransfer ALT/SGPT 17 U/L (<=46); Albumin, Serum 4.0 g/dL (3.4-4.8); Alkaline Phosphatase 76 U/L (40-129); Anion Gap 10 (5-15); BUN 22 mg/dL (4-19); BUN/Creat Ratio 22.3 RATIO (10-20); Calcium,Total 9.1 mg/dL (7.6-11.0); Carbon Dioxide 24.9 mmol/L (21.0-32.0); Chloride 104 mmol/L (98-108); Cholesterol 164 mg/dL (<=200); Globulin 2.8 g/dL (2.2-4.2); Glucose 85 mg/dL (70-99); Low Density Lipoprotein Calc. 86 mg/dL; Potassium 4.2 mmol/L (3.3-5.1); Triglycerides 79 mg/dL; Very Low Density Lipoprotein 16 mg/dL (5-40); cholesterol:hdl ratio screen 2.62
== END | disposition home or self-care (01) ==
LOC: LAB 09:45
PROVIDERS: PCP Family Medicine; Referring Provider Urology; Visit Provider Urology
DX: Z12.5 Encounter for screening for malignant neoplasm of prostate (principal); I71.21 Aneurysm of the ascending aorta, without rupture
CPT/HCPCS: 36415; 80053; 80061; 84153; G0103

== ENCOUNTER → 2025-08-18 | Outpatient (CLI) | payer MEDICARE, SELFPAY ==
--- NOTE | 2025-08-18 14:56 | CT_ITS ---
PROCEDURE: CTA CHEST W/WO CONTRAST 08/18/2025 REASON FOR EXAM: TAA TECHNIQUE: Procedure Code: [id number] Modality: CT Procedure: CTA CHEST W/WO CONTRAST Multiplanar Sagittal and Coronal images were obtained. CONTRAST: Isovue 370 VOLUME: 100 mL One or more dose reduction techniques were used (e.g., Automated exposure control, adjustment of the mA and/or kV according to patient size, use of iterative reconstruction technique). RADIATION DOSE SUMMARY: CTDlvol: 15.41 mGy DLP: 587 mGycm COMPARISON: CT scan on 08/02/2023. FINDINGS: There is redemonstration of a descending thoracic aortic aneurysm. Elongation of the distal aortic arch with kinking at the ligamentum arteriosum level. Just distal to the ligamentum arteriosum the aorta measures 4.4 cm, unchanged from prior. The aorta proximal to the ligamentum arteriosum measures 2.5 cm, also unchanged from prior. At the mid aspect of the descending thoracic aorta the aorta measures 3.6 cm. At the distal aspect the aorta measures 2.9 cm. Unchanged small sliding hiatal hernia. Unchanged mild diffuse spondylosis. 3 mm left renal nonobstructing stone. Diffuse chronic Schmorl's node formation. Prior cholecystectomy. There is no demonstrated aortic dissection. Normal enhancement of the main pulmonary artery and right and left pulmonary arteries. Normal enhancement of the bilateral peripheral pulmonary arteries. There is no demonstrated pulmonary embolism. Normal heart and pericardium. Normal mediastinum. Normal hilar regions. Normal visualized trachea and bronchi. The lungs are well expanded. Normal pulmonary parenchyma. Normal pleura. CT/CTA Chest W/WO Contrast IMPRESSION: There is redemonstration of a descending thoracic aortic aneurysm. Elongation of the distal aortic arch with kinking at the ligamentum arteriosum level. Just distal to the ligamentum arteriosum the aorta measures 4.4 cm, unchanged from prior. The aorta proximal to the liga mentum arteriosum measures 2.5 cm, also unchanged from prior. At the mid aspect of the descending thoracic aorta the aorta measur es 3.6 cm. At the distal aspect the aorta measures 2.9 cm. Unchanged small sliding hiatal hernia. Unchanged mild diffuse spondylosis. 3 mm left renal nonobstructing stone. Diffuse chronic Schmorl's node formation. Prior cholecystectomy. [facility]
--- NOTE | 2025-08-23 18:04 | CA.SCORE ---
Calcium Scoring Date of Study:: 08/18/25 Indications Indications: Family history Coronary Calcium Scoring: High-resolution Computed Tomographic imaging of the chest was performed on [08/18/2025], with particular attention paid to the coronary arteries. Images from the examination were analyzed for the presence and extent of coronary artery calcification , using coronary calcium quantification software. The patient tolerated the procedure well and there were no complications. The results of the coronary calcification analysis are provided below. Findings Coronary Artery Left Main (LM): 0 Left Anterior Descending (LAD): 25.9 Left Circumflex (LCX): 0 Right Coronary Artery (RCA): 29.2 Total Agatston Score: 55.1 Percentile Rankinth-50th Calcium Scoring Interpretation: Different methods to categorize the overall amount of coronary plaque. Overall amount CAC SIS Visual of coronary plaque P1 Mild -100 <2 1-2 vessels with mild amount of plaque P2 Moderate 101-300 3-4 1-2 vessels with moderate amount, 3 vessels with mild amount of plaque P3 Severe 301-999 5-7 3 vessels with moderate amount, 1 vessel with severe amount of plaque P4 Extensive >1000 >8 2-3 vessels with severe amount of plaque Calcium Score: Mild: 1-2 vessels w/mild amount of plaque Conclusion: Mild two-vessel atherosclerotic plaquing present.
== END | disposition home or self-care (01) ==
PROVIDERS: PCP Family Medicine; Referring Provider Internal Medicine Cardiovascular Disease; Visit Provider Internal Medicine Cardiovascular Disease
DX: I71.23 Aneurysm of the descending thoracic aorta, without rupture (principal); R07.9 Chest pain, unspecified
CPT/HCPCS: 71275; 75571; Q9967